=== PATIENT | female | born 1990 | race African-American/Black ===

== ENCOUNTER 2021-03-21 15:43 | Emergency (ER) | payer OTHER, SELFPAY ==
--- NOTE | ~2021-03-21 | XR_ITS ---
EXAMINATION: XR ankle RT min 3V DATE: 03/21/2021 16:02 INDICATION: Lateral right ankle pain post fall TECHNIQUE: Anteroposterior, oblique, mortise, and lateral views of the right ankle were obtained. COMPARISON: None. FINDINGS: Alignment is normal. No fracture. Joint spaces are well maintained. No ankle joint effusion. The so ft tissues are unremarkable. IMPRESSION: 1. Negative right ankle radiographs. Reviewed, dictated and finalized at location A.
[2021-03-21 15:50] VITALS: BP 111/78; PULSE 105; RESP 16; TEMP 37.1; O2SAT 99
--- NOTE | 2021-03-21 16:12 | ED.GENADULT ---
HPI - General Adult General Chief complaint: Extremity Injury, Lower Stated complaint: right ankle pain Source: patient Mode of arrival: ambulatory Limitations: no limitations History of Present Illness HPI narrative: Patient is a 30-year-old -Luxembourger female who presents to the [facility] via POV for evaluation of a right ankle injury that occurred today. Patient reports she was at home when she accidentally fell down steps when she missed stepped wearing her [employer] slides. Additionally, she reports pain and swelling. Pain is 7 out of 10 on a pain scale. Symptoms improved with elevation and worsened with weightbearing Related Data Allergies Allergy/AdvReac Type Severity Reaction Status Date / Time Penicillins Allergy Intermediate HIVES Verified 03/21/21 16:08 Review of Systems Review of Systems: Pertinent negatives: fever, chills, sweats, change in appetite, poor p.o. intake, malaise, calf tenderness, skin color changes, rash, warmth, numbness, tingling, loss of sensation, deformity, decreased range of motion, weakness, difficulty with ambulation/coordination, nausea, vomiting, lymphadenopathy, shortness of breath, chest pain, heart palpitations, and heart murmur. PMFSH Comments I have reviewed and agree with the patient's past medical, surgical, social, and family hx as documented by the RN. There is no relevant family history pertinent to the presenting complaint. Exam Narrative: GENERAL: Well-appearing, well-nourished, and in no acute distress. HEAD: Normocephalic, atraumatic. NECK: Supple. No Lymphadenopathy or nuchal rigidity appreciated. CHEST: Bilateral lung whelan are clear to auscultation. No respiratory distress. No evidence of cough or pleuritic cp upon examination. HEART: Tachycardia with a rate of 105. Regular rhythm. No murmur, gallop, or rub heard. EXTREMITIES: Mild swelling and moderate point tenderness palpated over lateral malleolus of right ankle. Moderate pain is elicited with all active/passive ROM of right ankle no evidence of decreased ROM, cyanosis, hematoma, laceration, abrasion, deformity, rash, or puncture. No evidence of dislocation, ligament laxity, effusion, or pain at rest. Pulses palpable at 2+, strength 5/5, and cap refill < 3 seconds in affected extremity. DTRs normal. Gait normal. SKIN: Warm, dry, no rash. NEURO: No focal deficits. Alert and oriented x3. Course Vital Signs Vital signs: Vital Signs Temperature 98.7 F 03/21/21 15:50 Pulse Rate 105 H 03/21/21 15:50 Respiratory Rate 16 03/21/21 15:50 Blood Pressure 111/78 03/21/21 15:50 Pulse Oximetry 99 03/21/21 15:50 Temperature 98.7 F 03/21/21 15:50 Pulse Rate 105 H 03/21/21 15:50 Respiratory Rate 16 03/21/21 15:50 Blood Pressure 111/78 03/21/21 15:50 Pulse Oximetry 99 03/21/21 15:50 Reviewed Procedures Orthopedic Splinting/Casting Injury #1: Splinting/Casting Date: 03/21/21 Splinting/Casting Time: 16:24 Side: right Upper Extremity Immobilizer: Hemant wrap Lower Extremity Injury Location: ankle Pre-Procedure Neuro Vascular Exam: normal Post-Procedure Neuro Vascular Exam: normal Medical Decision Making Differential Diagnosis Differential Diagnosis: Sprain, strain, cellulitis, open fracture, closed fracture, gout Medical Records Medical records reviewed: Yes I reviewed the external patient's medical records. Vital Signs Vital Signs: Vital Signs Temperature 98.7 F 03/21/21 15:50 Pulse Rate 105 H 03/21/21 15:50 Respiratory Rate 16 03/21/21 15:50 Blood Pressure 111/78 03/21/21 15:50 Pulse Oximetry 99 03/21/21 15:50 Temperature 98.7 F 03/21/21 15:50 Pulse Rate 105 H 03/21/21 15:50 Respiratory Rate 16 03/21/21 15:50 Blood Pressure 111/78 03/21/21 15:50 Pulse Oximetry 99 03/21/21 15:50 Reviewed Imaging Data Attestation: I personally reviewed and interpreted this imaging study as follows: My impression: Negative
== END 2021-03-21 16:30 | disposition home or self-care (01) ==
PROVIDERS: Emergency Provider Nurse Practitioner Family
DX: S93.401A Sprain of unspecified ligament of right ankle, initial encounter (principal); S96.911A Strain of unspecified muscle and tendon at ankle and foot level, right foot, initial encounter; W10.9XXA Fall (on) (from) unspecified stairs and steps, initial encounter
CPT/HCPCS: 73610; 99213; G0463

== ENCOUNTER 2022-03-08 10:33 | Outpatient (CLI) | payer SELFPAY ==
--- NOTE | ~2022-03-08 | US_ITS ---
EXAMINATION: US transvaginal DATE: 03/08/2022 13:19 INDICATION: Fragility testes Comparison:Ultrasound dated 11/04/2017 TECHNIQUE: Multiple endovaginal sonographic images of the pelvis performed. FINDINGS: The uterus measures 8.2 x 4.4 x 5.4 cm. The endometrial complex measures 2 mm. The right ovary measures 2.7 x 1.8 x 1.7 cm and the left ovary measures 2.5 x 1.6 x 1.4 cm. There ar e small follicles in each ovary. Normal doppler signal in both ovaries. There is no free fluid in the pelvis. There are no abnormal masses seen on either side. IMPRESSION: 1. Unremarkable pelvic ultrasound. Reviewed, dictated and finalized at location B.
[2022-03-13 07:08] LABS: Progesterone 0.5 ng/mL (***)
[2022-03-15 20:26] LABS: Estradiol, Ultrasensitive 23 pg/mL
== END 2022-03-08 10:34 | disposition home or self-care (01) ==
DX: Z31.41 Encounter for fertility testing (principal)
CPT/HCPCS: 36415; 76830; 82670; 84144

== ENCOUNTER 2022-03-17 14:22 | Outpatient (CLI) | payer SELFPAY ==
--- NOTE | ~2022-03-17 | US_ITS ---
EXAMINATION: US pelvic complete w TV DATE: 03/17/2022 15:18 INDICATION: Encounter for infertility. Comparison:Ultrasound dated 03/08/2022 TECHNIQUE: Multiple transabdominal and endovaginal sonographic images of the pelvis performed. FINDINGS: The uterus measures 8.3 x 4.5 x 5.7 cm. The endometrial complex measures 2 mm. The right ovary measures 3.1 x 2.5 x 2.5 cm and the left ovary measures 3.1 x 2 x 2.5 cm. There are small follicles in each ovary. There is a 1.8 cm right ovarian cyst. Normal doppler signal in both ov kam. There is no free fluid in the pelvis. There are no abnormal masses seen on either side. IMPRESSION: 1. Right ovarian cyst measuring 1.8 cm. Otherwise, unremarkable pelvic ultrasound. Reviewed, dictated and finalized at location A. IMPRESSION: 1. Right ovarian cyst measuring 1.8 cm. Otherwise, unremarkable pelvic ultrasou nd.
== END 2022-03-17 14:23 | disposition home or self-care (01) ==
DX: N97.9 Female infertility, unspecified (principal); N83.201 Unspecified ovarian cyst, right side
CPT/HCPCS: 76830; 76856

== ENCOUNTER 2022-03-28 15:55 | Outpatient (CLI) | payer SELFPAY ==
--- NOTE | ~2022-03-28 | US_ITS ---
EXAMINATION: US pelvic complete w TV DATE: 03/28/2022 17:09 INDICATION: Fragility testing Comparison:Ultrasound dated 03/17/2022 TECHNIQUE: Multiple transabdominal and endovaginal sonographic images of the pelvis performed. FINDINGS: The uterus measures 8.3 x 4.5 x 5.6 cm. The endometrial complex measures 8 mm. There are ec hogenic foci in the lower uterine segment, consistent with calcifications, nonspecific. The right ovary measures 2.8 x 2 x 2.5 cm and the left ovary measures 3 x 1.6 x 2.3 cm. There are sm all follicles in each ovary. Normal doppler signal in both ovaries. There is no free fluid in the pelvis. There are no abnormal masses seen on either side. IMPRESSION: 1. Unremarkable pelvic ultrasound. Reviewed, dictated and finalized at location A.
== END 2022-03-28 15:56 | disposition home or self-care (01) ==
DX: Z31.41 Encounter for fertility testing (principal)
CPT/HCPCS: 76830; 76856

== ENCOUNTER 2022-04-27 14:45 | Emergency (ER) | payer OTHER, SELFPAY ==
--- NOTE | ~2022-04-27 | US_ITS ---
EXAMINATION: US OB <=14 wk fetus w TV DATE: 04/27/2022 17:16 INDICATION: Vaginal bleeding during first trimester TECHNIQUE: Real-time pelvic transabdominal and transvaginal ultrasound was performed. COMPARISON: 03/28/2022 FINDINGS: The uterus measures 9.3 x 5.2 x 5.7 cm. There is an intrauterine gestational sac. A yolk s ac is identified. heart motion is identified but is difficult to measure due to positioni ng. The crown rump length measures 3 mm, which correlates with an estimated gestational age of 6 weeks and 0 day(s) (+/-) 4 day(s). The left ovary is not visualized however no left adnexal abnormality is seen. The right ovary measure s 2.6 x 1.8 x 1.4 cm. There is normal vascular flow in the right ovary. There is no free fluid in the pelvis. IMPRESSION: 1. Live intrauterine with an estimated gestational age of 6 weeks and 0 day(s) (+/-) 4 day( s) and an estimated delivery date of 12/21/2022. Reviewed, dictated and finalized at location F. ED TECH IMPRESSION: 1. Live intrauterine with an estimated gestational age of 6 weeks and 0 day(s) (+/-) 4 day(s) and an estimated delivery date of 12/21/2022.
[2022-04-27 14:46] VITALS: BP 142/78; PULSE 90; RESP 18; TEMP 36.7; O2SAT 100
[2022-04-27 15:05] LABS: Basophils Percent Auto 0.4 % (0.2-1.2); Eosinophils Absolute Auto 0.1 K/mm3 (0-0.3); Eosinophils Percent Auto 1.2 % (0-4.4); Hematocrit 38.2 % (37.0-47.0); Immature Granulocyte Absolute 0.02 K/mm3 (0.00-0.031); Immature Granulocyte Percent A 0.2 % (0-0.5); Lymphocytes Absolute Auto 3.86 K/mm3 (0.9-3.2); Lymphocytes Percent Auto 39.2 % (18.3-44.2); Mean Corpuscular Hemoglobin 31.5 pg (26-34); Mean Corpuscular Volume 92.5 fl (80-100); Mean Platelet Volume 9.3 fl (7.4-10.4); Monocytes Absolute Auto 0.7 K/mm3 (0.1-0.6); Neutrophils Absolute Auto 5.1 K/mm3 (1.3-6.7); Platelet Count Result 302 k/mm3 (150-375); Red Blood Count 4.13 M/mm3 (4.2-5.4); Red Cell Distribution Width 12.8 % (11.5-14.5); White Blood Count 9.8 K/mm3 (4.5-10.0)
--- NOTE | 2022-04-27 17:56 | ED.PREGNANCY ---
HPI - General Chief complaint: Vaginal Bleeding Stated complaint: 6 weeks /bleeding Time Seen by Provider: 04/27/22 16:09 Source: patient Mode of arrival: ambulatory Limitations: no limitations History of Present Illness HPI Narrative: Patient is a 31-year-old female who presents the ED with report of vaginal bleeding. Patient reports she is currently around 6 weeks gestation with a surrogate . She is (her own children) A1. She underwent IVF egg transfer on 04/06 through a clinic in [place]. She was monitored by the clinic in [place] with weekly beta hCGs. She has not had a ultrasound yet this . This morning around 11 AM, she reported having some vaginal spotting. She did pass 1 medium sized blood clot. She denies any significant abdominal pain, nausea, vomiting, fevers, rectal bleeding, diarrhea, constipation. Related Data Allergies Allergy/AdvReac Type Severity Reaction Status Date / Time Penicillins Allergy Intermediate HIVES Verified 03/21/21 16:08 Review of Systems Review of Systems: CONSTITUTIONAL: Denies fever, chills, or sweats. CARDIOVASCULAR: Denies chest pain. RESPIRATORY: Denies dyspnea. GASTROINTESTINAL: Denies abdominal pain, nausea, vomiting, constipation, rectal bleeding, or diarrhea. GENITOURINARY: Reports vaginal bleeding. Denies dysuria or hematuria. All systems reviewed & are unremarkable except as noted in HPI and below PMFSH Past Medical History Medical History (Updated 04/27/22 @ 19:12 by Delfina Zuniga PA-C) No pertinent past medical history Surgical History Surgical History (Updated 04/27/22 @ 19:12 by Delfina Zuniga PA-C) No pertinent past surgical history Social History Social History (Updated 04/27/22 @ 19:12 by Delfina Zuniga PA-C) Smoking status: Never smoker Exam Narrative: GENERAL: Well appearing, obese, non-toxic, in no acute distress. HEAD: Normocephalic, atraumatic. NECK: Supple. No adenopathy, no masses. RESPIRATORY: Airway patent, respirations nonlabored. Clear to auscultation bilaterally, no rales, rhonchi, wheezing. CARDIOVASCULAR: Regular rate and rhythm without murmurs, rubs, or gallops. Radial pulses 2+ and equal bilaterally. ABDOMINAL: Soft, no significant tenderness palpation, nondistended, no hepatosplenomegaly. Normoactive BS. PELVIC: Normal external genitalia. Normal appearance to cervix, appears closed. Mild amount of dark red bleeding present in vaginal vault, no signs of hemorrhage, easily cleared with long q-tips. No pooling of blood. No discharge. MUSCULOSKELETAL: Moves all extremities. Strength/ROM intact without gross deformities. SKIN: Warm, dry, normal color. No rashes. NEURO: A&O X3. Speech clear. Cranial nerves II-XII grossly intact. Steady gait. No ataxic movements. PSYCHIATRIC: Appropriate mood and affect. Normal interaction. Course Vital Signs Vital signs: Vital Signs Temperature 98.0 F 04/27/22 14:46 Pulse Rate 90 04/27/22 14:46 Respiratory Rate 18 04/27/22 14:46 Blood Pressure 142/78 H 04/27/22 14:46 Pulse Oximetry 100 04/27/22 14:46 Oxygen Delivery Room Air 04/27/22 14:46 Temperature 98.0 F 04/27/22 14:46 Pulse Rate 90 04/27/22 14:46 Respiratory Rate 18 04/27/22 14:46 Blood Pressure 142/78 H 04/27/22 14:46 Pulse Oximetry 100 04/27/22 14:46 Oxygen Delivery Room Air 04/27/22 14:46 MDM - OB/Uterine Contractions MDM Narrative Medical decision making narrative: Patient presented to ED with report of vaginal bleeding, approximately 6 weeks gestation for surrogate , implanted via IVF on 04/06. Vital stable upon arrival. Labs obtained and unremarkable. No anemia. UA without signs of infection. Patient O+, RhoGAM not required. Beta-hCG today 8749. Patient reports she has been obtaining beta hCGs every week at an outpatient lab. She states she had a beta-hCG drawn this morning which was 9000. Pelvic ultrasound obtained
[2022-04-27 18:28] LABS: Add Urine Microscopic? YES; Appearance Urine Cloudy (Clear); Bilirubin Urine Negative (Negative); Blood Urine 3+ (Negative); Color Urine Red (Yellow); Glucose Urine UA Negative (Negative); Ketones Urine Negative (Negative); Leukocyte Esterase Ur Negative LEU/UL (Negative); Nitrate Urine Negative (Negative); Protein Urine 1+ mg/dL (Negative); Specific Grav Ur 1.025 (1.001-1.035); Urobilinogen Urine 0.2 mg/dL (<2.0)
[2022-04-27 18:32] LABS: Mucus Urine Rare /lpf; RBC Urine >75 /hpf (0-2); WBC Urine 0-3 /hpf
== END 2022-04-27 19:58 | disposition home or self-care (01) ==
PROVIDERS: Physician Assistant; Emergency Provider Emergency Medicine
DX: O20.0 Threatened abortion (principal); Z3A.01 Less than 8 weeks gestation of pregnancy
CPT/HCPCS: 36415; 76801; 76817; 81001; 84702; 85025; 85461; 86850; 86900; 86901; 99284

== ENCOUNTER 2022-05-03 14:39 | Outpatient (CLI) | payer SELFPAY ==
--- NOTE | ~2022-05-03 | US_ITS ---
EXAMINATION: US OB <=14 wk fetus w TV DATE: 05/03/2022 16:06 INDICATION: Gestational dating TECHNIQUE: Real-time transabdominal and transvaginal obstetric ultrasound. FINDINGS: Comparison ultrasound dated 04/27/2022 The uterus measures 10.3 x 6.9 x 4.6 cm. There is an intrauterine gestational sac, with pole id entified. The crown rump length measures 0.79 cm. heart rate is 135 BPM. There is a subchorion ic hemorrhage measuring 2.2 x 1.9 x 0.4 cm. The ovaries are within normal limits. No free fluid in th e pelvis. IMPRESSION: 1. SL IUP with an EGA of 6 weeks, 6 days (EDC by initial ultrasound of 12/21/2022). 2: Small subchorionic hemorrhage. Reviewed, dictated and finalized at location B. NCIAL INVESTMENT MANAGER IMPRESSION: 1. SL IUP with an EGA of 6 weeks, 6 days (EDC by initial ultrasound of 3). 2: Small subchorionic hemorrhage.
== END 2022-05-03 14:40 | disposition home or self-care (01) ==
LOC: ANHIMG 14:54
DX: O09.891 Supervision of other high risk pregnancies, first trimester (principal); Z3A.01 Less than 8 weeks gestation of pregnancy
CPT/HCPCS: 76801; 76817

== ENCOUNTER 2022-05-30 11:57 | Observation (INO) | payer SELFPAY ==
[2022-05-30 12:30] VITALS: TEMP 37.1
[2022-05-30] MEDS: ONDANSETRON INJ 4 MG/2 ML VIAL IV PUSH (12:39)
[2022-05-30] MEDS: DEXTROSE 5%/LACTATED RINGERS 1,000 ML 999 ML IV CONT ×2 (12:39→13:42)
[2022-05-30 12:40] LABS: Bilirubin Urine 1+ (Negative); Blood Urine 3+ (Negative); Glucose Urine UA Negative (Negative); Ketones Urine Trace mg/dL (Negative); Leukocyte Esterase Ur Trace LEU/UL (Negative); Nitrate Urine Negative (Negative); Protein Urine 2+ mg/dL (Negative); Specific Grav Ur >= 1.030 (1.001-1.035)
[2022-05-30 12:44] VITALS: BMI 33.2
[2022-05-30 12:44] LABS: Add Urine Microscopic? YES; Appearance Urine Cloudy (Clear); Color Urine Dark Orange (Yellow)
--- NOTE | 2022-05-30 12:44 | OBADM ---
This patient, Nury Méndez, admitted to the OB room OB Post 116 for observation. Patient/family oriented to hospital policies and general routines including ID bracelet, bed and alarms, visiting hours, pain management, procedures, bathroom and other care routines, personal items, smoking policy, room service/diet, and visiting hours. Patient/Family are encouraged to report perceived risks to care and to ask questions if they do not understand what they are told or what they should do.
[2022-05-30 12:48] LABS: Alanine Aminotransferase 31 U/L (6-35); Albumin Level 4.2 g/dL (3.5-5.1); Alkaline Phosphatase 56 U/L (38-126); Anion Gap 11 mmol/L (8-16); Aspartate Amino Transferase 31 U/L (14-36); Bilirubin,Total 0.7 mg/dL (0.2-1.3); Blood Urea Nitrogen 7 mg/dL (7-17); Calcium 9.1 mg/dL (8.4-10.2); Carbon Dioxide 20 mmol/L (22-30); Chloride 105 mmol/L (98-107); Estimated CRCL calculation 137 ml/min; Estimated Glomerular Filt Rate > 60; Glucose 125 mg/dL (65-110); Potassium 3.5 mmol/L (3.4-5.0); Sodium 136 mmol/L (137-145)
[2022-05-30 12:49] LABS: Bacteria Urine 1+ /hpf; Mucus Urine Heavy /lpf; RBC Urine 21-50 /hpf (0-2); Squamous Epithelial Cell Urine Many /hpf (Few); WBC Urine 31-50 /hpf
--- NOTE | 2022-06-18 20:19 | PM.OBTRLD ---
OB - Triage/Final Diagnosis Visit Information Comments/Additional reasons for admission: I have assessed the risk for this patient, Nury Méndez, and determined that she would benefit from observation care. Evaluation Laboratory results: Laboratory Tests 05/30/22 05/30/22 12:27 12:27 Sodium 136 L Potassium 3.5 Chloride 105 Carbon Dioxide 20 L Anion Gap 11 BUN 7 Creatinine 0.70 Estim Creat Clear Calc 137 Estimated GFR > 60 Glucose 125 H Calcium 9.1 Total Bilirubin 0.7 AST 31 ALT 31 Alkaline Phosphatase 56 Total Protein 8.0 Albumin 4.2 Urine Color Dark orange H Urine Appearance Cloudy H Urine pH 5.0 Ur Specific [place] >= 1.030 Urine Protein 2+ H Urine Glucose (UA) Negative Urine Ketones Trace Ur Blood (Man) 3+ H Urine Nitrate Negative Urine Bilirubin 1+ H Urine Urobilinogen 1.0 Leukocyte Esterase Rfl Trace H Urine RBC 21-50 H Urine WBC 31-50 H Ur Squamous Epith Cells Many H Urine Bacteria 1+ H Urine Mucus Heavy H Final Diagnosis (1) Hyperemesis gravidarum: Code(s): O21.0 - Mild hyperemesis gravidarum Status: Acute
== END 2022-05-30 15:00 | disposition home or self-care (01) ==
PROVIDERS: Admitting Provider Obstetrics & Gynecology; Visit Provider Obstetrics & Gynecology
DX: O21.0 Mild hyperemesis gravidarum (principal); Z3A.10 10 weeks gestation of pregnancy
CPT/HCPCS: 36415; 80053; 81001; 87086; 87088; 96361; 96374; G0378; G0379; J2405; J7121

== ENCOUNTER 2022-05-30 18:03 | Outpatient (CLI) | payer SELFPAY ==
--- NOTE | ~2022-05-30 | US_ITS ---
US OB <= 14 weeks fetus DATE: 05/30/2022 18:45 INDICATION: screening examination TECHNIQUE: Real-time and color flow imaging and Doppler analysis COMPARISON: None FINDINGS: The uterus measures 13.7 cm height, 7 cm AP dimension. There is normal appearing intrauteri ne gestational sac. pole is identified with heart rate of 168 bpm. [place]-rump length measures 3.63 cm, consistent with estimated gestational age of 10 weeks 4 days +/- 1 week, with SHANNAN of 12/22/2022. Small subchorionic fluid collection may be a small subchorionic hemato ma. IMPRESSION: Estimated gestational age of 10 weeks 4 days +/- 1 week, with SHANNAN of 12/22/2022 Small subchorionic fluid collection, which may be a small subchorionic hematoma Reviewed, dictated and finalized at Location A. Reviewed, dictated and finalized at location A. UCT DEVELOPMENT ECOLOGIST IMPRESSION: Estimated gestational age of 10 weeks 4 days +/- 1 week, with SHANNAN o f 12/22/2022 Small subchorionic fluid collection, which may be a small subchorionic hematoma
== END 2022-05-30 18:04 | disposition home or self-care (01) ==
DX: Z36.9 Encounter for antenatal screening, unspecified (principal); Z3A.10 10 weeks gestation of pregnancy
CPT/HCPCS: 76801

== ENCOUNTER 2022-06-16 12:54 | Observation (INO) | payer OTHER, SELFPAY ==
--- NOTE | ~2022-06-16 | US_ITS ---
US right upper quadrant INDICATION: Gallstones. PROCEDURE: Realtime right upper abdominal ultrasound. COMPARISON: No prior studies for comparison. FINDINGS: The pancreas is normal without focal mass or pancreatic ductal dilation. There is a small echogenic mass measuring 9 mm in the anterior aspect of the liver. There is normal directional flow in the portal vein. Gallbladder contains sludge. No gallstones, gallbladder wall thickening or pericholecystic fluid. Com mon bile duct measures 4 mm. No sonographic Valero's sign. IMPRESSION: 1: Gallbladder sludge. 2: Small 9 mm echogenic mass anterior aspect of the liver, most likely benign hemangioma in the abse nce of known malignancy. Reviewed, dictated and finalized at location A. AGE CENTER SUPERVISOR IMPRESSION: 1: Gallbladder sludge. 2: Small 9 mm echogenic mass anterior aspect of the liver, most likely benign hemangioma in the absence of known malignancy.
[2022-06-16 13:40] LABS: Basophils Percent Auto 0.4 % (0.2-1.2); Eosinophils Percent Auto 0.3 % (0-4.4); Hematocrit 41.5 % (37.0-47.0); Hemoglobin 13.9 g/dL (12.0-15.0); Immature Granulocyte Absolute 0.02 K/mm3 (0.00-0.031); Immature Granulocyte Percent A 0.3 % (0-0.5); Lymphocytes Absolute Auto 1.95 K/mm3 (0.9-3.2); Lymphocytes Percent Auto 26.5 % (18.3-44.2); Mean Corpuscular HGB Conc 33.5 g/dl (32-36); Mean Corpuscular Hemoglobin 31.7 pg (26-34); Mean Corpuscular Volume 94.5 fl (80-100); Mean Platelet Volume 10.5 fl (7.4-10.4); Monocytes Absolute Auto 0.6 K/mm3 (0.1-0.6); Monocytes Percent Auto 7.8 % (2.6-8.5); Neutrophils Absolute Auto 4.8 K/mm3 (1.3-6.7); Neutrophils Percent Auto 64.7 % (45.5-73.1); Platelet Count Result 261 k/mm3 (150-375); Red Blood Count 4.39 M/mm3 (4.2-5.4); White Blood Count 7.4 K/mm3 (4.5-10.0)
[2022-06-16] MEDS: ONDANSETRON INJ 4 MG/2 ML VIAL IV PUSH (13:43)
[2022-06-16] MEDS: DEXTROSE 5%/LACTATED RINGERS 1,000 ML 999 ML IV CONT ×2 (13:44→14:49)
[2022-06-16 13:51] LABS: Alanine Aminotransferase 48 U/L (6-35); Albumin Level 4.4 g/dL (3.5-5.1); Alkaline Phosphatase 63 U/L (38-126); Anion Gap 13 mmol/L (8-16); Aspartate Amino Transferase 39 U/L (14-36); Blood Urea Nitrogen 5 mg/dL (7-17); Calcium 9.2 mg/dL (8.4-10.2); Carbon Dioxide 20 mmol/L (22-30); Chloride 99 mmol/L (98-107); Estimated Glomerular Filt Rate > 60; Glucose 100 mg/dL (65-110); Potassium 3.1 mmol/L (3.4-5.0); Sodium 132 mmol/L (137-145)
[2022-06-16 14:31] LABS: HIV 1/2 Ab P24 Ag Result Negative (Negative)
[2022-06-16 15:07] VITALS: BMI 31.4
[2022-06-16 15:33] LABS: Add Urine Microscopic? YES; Appearance Urine Cloudy (Clear); Bilirubin Urine 1+ (Negative); Blood Urine 2+ (Negative); Color Urine Yellow (Yellow); Glucose Urine UA 1+ mg/dL (Negative); Ketones Urine 3+ mg/dL (Negative); Leukocyte Esterase Ur Negative LEU/UL (Negative); Nitrate Urine Negative (Negative); Protein Urine Trace mg/dL (Negative); Specific Grav Ur >= 1.030 (1.001-1.035)
[2022-06-16 15:49] LABS: Bacteria Urine Trace /hpf; Mucus Urine Few /lpf; Squamous Epithelial Cell Urine Many /hpf (Few)
--- NOTE | 2022-06-16 16:13 | PC.NURSE ---
1540--Pt. vomited 200cc liquid emesis yellow/brown in color.
--- NOTE | 2022-06-16 16:14 | PC.NURSE ---
1546--Report to Dr. Snider re: lab results and pt. vomiting. Orders received for meds, IVF's with KCL and an u/s.
--- NOTE | 2022-06-16 16:15 | PC.NURSE ---
1254--Pt. received for IV hydration and labwork.
--- NOTE | 2022-06-16 16:16 | PC.NURSE ---
1340--IV started with 20g in L. hand, labs drawn and sent with IV start.
[2022-06-16 16:29] LABS: Rapid Plasma Reagin Non-Reactive (NonReactive)
[2022-06-16] MEDS: ceFAZolin 2 GM/D5W 50 ML 2 GM/50 ML BAG IVPB (16:41)
[2022-06-16] MEDS: METOCLOPRAMIDE HCL INJ 10 MG/2 ML VIAL IV PUSH (16:42)
[2022-06-16] MEDS: FAMOTIDINE 20 MG TABLET PO (16:43)
[2022-06-16] MEDS: POTASSIUM CHLORIDE INJ 40 MEQ in DEXTROSE 5%/LACTATED RINGERS 1,000 ML 150 MEQ IV CONT (17:17)
--- NOTE | 2022-06-16 17:24 | PC.NURSE ---
172--Report to Dr. Snider re: u/s report, and pt. states no nausea or vomiting since pepcid and reglan. Orders to continue IVF's with KCL, and allow pt. to try to eat when she feels like it. If she is able to eat and keep food down and wants to go home, call Dr. Snider back.
--- NOTE | 2022-06-16 18:20 | PC.NURSE ---
182--Pt. updated re: POC as discussed with Dr. Snider, states she just wants to rest at this time. Report to Brodie Casanova RN to assume care of pt.
--- NOTE | 2022-06-16 19:15 | PC.NURSE ---
Dr. Snider calls unit for update. Informed that patient was updated on POC and is going to let the nurse know when she is ready to eat. Dr Snider states she is sending prescriptions to the pharmacy for keflex, potassium, and reglan and that when the patient is ready to discharge home she is able to do so.
--- NOTE | 2022-06-16 19:22 | PC.NURSE ---
Patient calls out to nurses station at this time stating that she is ready to try eating. Jello, apple sauce, saltine and tristian crackers with peanut butter all brought to patient at this time for her to choose what she would like to eat. Pt informed that Dr. Snider called unit for an update and was told patient was resting and that she was sending orders for Keflex, potassium, and reglan to the pharmacy for when the patient chooses to leave.
--- NOTE | 2022-06-16 19:53 | PC.NURSE ---
Dr Snider calls unit and orders for patient to stay over night and after her D5LR KCl is administered to saline lock if she is tolerating liquids and keeping her food down. Orders to repeat CMP in the morning. POC discussed with patient and pt agrees with POC
--- NOTE | 2022-06-16 20:00 | PC.NURSE ---
Patient states she has been able to keep her food down. Ate jello, apple sauce, and tristian crackers with peanut butter.
--- NOTE | 2022-06-16 21:05 | PC.NURSE ---
Patient IV infiltrated, new IV start after 2 attempts in right AC and IV fluids continued.
--- NOTE | 2022-06-17 00:22 | PC.NURSE ---
IV fluids DC at this time, patient still able to keep food down and states she is going to sleep and will let the nurse know if she needs anything. IV saline locked at this time.
[2022-06-17 05:50] LABS: Alanine Aminotransferase 49 U/L (6-35); Albumin Level 3.2 g/dL (3.5-5.1); Alkaline Phosphatase 48 U/L (38-126); Anion Gap 7 mmol/L (8-16); Aspartate Amino Transferase 38 U/L (14-36); Bilirubin,Total 0.7 mg/dL (0.2-1.3); Blood Urea Nitrogen 2 mg/dL (7-17); Calcium 8.6 mg/dL (8.4-10.2); Carbon Dioxide 22 mmol/L (22-30); Chloride 107 mmol/L (98-107); Estimated CRCL calculation 132 ml/min; Estimated Glomerular Filt Rate > 60; Glucose 101 mg/dL (65-110); Potassium 3.3 mmol/L (3.4-5.0); Sodium 136 mmol/L (137-145)
[2022-06-17] MEDS: FAMOTIDINE 20 MG TABLET PO (09:20)
[2022-06-17] MEDS: POTASSIUM CHLORIDE 20 MEQ TABLET PO (10:06)
--- NOTE | 2022-07-11 09:13 | PM.OBTRLD ---
OB - Triage/Final Diagnosis Visit Information Comments/Additional reasons for admission: I have assessed the risk for this patient, Nury Méndez, and determined that she would benefit from observation care. Evaluation Laboratory results: Laboratory Tests 06/16/22 06/16/22 06/16/22 13:32 13:32 13:32 WBC RBC Hgb Hct MCV MCH MCHC RDW Plt Count MPV Immature Gran % (Auto) Neut % (Auto) Lymph % (Auto) [place] % (Auto) Eos % (Auto) Baso % (Auto) Lymph # (Auto) [place] # (Auto) Eos # (Auto) Baso # (Auto) Abs Immat Gran (auto) Absolute Neuts (auto) Absolute Nucleated RBC Nucleated RBC % Sodium Potassium Chloride Carbon Dioxide Anion Gap BUN Creatinine Estim Creat Clear Calc Estimated GFR Glucose Calcium Total Bilirubin AST ALT Alkaline Phosphatase Total Protein Albumin TSH 2.180 Urine Color Yellow Urine Appearance Cloudy H Urine pH 6.0 Ur Specific [place] >= 1.030 Urine Protein Trace Urine Glucose (UA) 1+ H Urine Ketones 3+ H Ur Blood (Man) 2+ H Urine Nitrate Negative Urine Bilirubin 1+ H Urine Urobilinogen 1.0 Leukocyte Esterase Rfl Negative Urine RBC 11-20 H Urine WBC 10-15 H Ur Squamous Epith Cells Many H Urine Bacteria Trace Urine Mucus Few H RPR Non-reactive HIV 1&2 Ab/P24 Ag 4thGn 06/16/22 06/16/22 06/16/22 13:32 13:32 13:32 WBC 7.4 RBC 4.39 Hgb 13.9 Hct 41.5 MCV 94.5 MCH 31.7 MCHC 33.5 RDW 13.0 Plt Count 261 MPV 10.5 H Immature Gran % (Auto) 0.3 Neut % (Auto) 64.7 Lymph % (Auto) 26.5 [place] % (Auto) 7.8 Eos % (Auto) 0.3 Baso % (Auto) 0.4 Lymph # (Auto) 1.95 [place] # (Auto) 0.6 Eos # (Auto) 0.0 Baso # (Auto) 0.0 Abs Immat Gran (auto) 0.02 Absolute Neuts (auto) 4.8 Absolute Nucleated RBC 0.0 Nucleated RBC % 0.0 Sodium 132 L Potassium 3.1 L Chloride 99 Carbon Dioxide 20 L Anion Gap 13 BUN 5 L Creatinine 0.70 Estim Creat Clear Calc Not Reportable Estimated GFR > 60 Glucose 100 Calcium 9.2 Total Bilirubin 1.0 AST 39 H ALT 48 H Alkaline Phosphatase 63 Total Protein 8.0 Albumin 4.4 TSH Urine Color Urine Appearance Urine pH Ur Specific [place] Urine Protein Urine Glucose (UA) Urine Ketones Ur Blood (Man) Urine Nitrate Urine Bilirubin Urine Urobilinogen Leukocyte Esterase Rfl Urine RBC Urine WBC Ur Squamous Epith Cells Urine Bacteria Urine Mucus RPR HIV 1&2 Ab/P24 Ag 4thGn Negative 06/17/22 05:11 WBC RBC Hgb Hct MCV MCH MCHC RDW Plt Count MPV Immature Gran % (Auto) Neut % (Auto) Lymph % (Auto) [place] % (Auto) Eos % (Auto) Baso % (Auto) Lymph # (Auto) [place] # (Auto) Eos # (Auto) Baso # (Auto) Abs Immat Gran (auto) Absolute Neuts (auto) Absolute Nucleated RBC Nucleated RBC % Sodium 136 L Potassium 3.3 L Chloride 107 Carbon Dioxide 22 Anion Gap 7 L BUN 2 L Creatinine 0.70 Estim Creat Clear Calc 132 Estimated GFR > 60 Glucose 101 Calcium 8.6 Total Bilirubin 0.7 AST 38 H ALT 49 H Alkaline Phosphatase 48 Total Protein 6.0 L Albumin 3.2 L TSH Urine Color Urine Appearance Urine pH Ur Specific [place] Urine Protein Urine Glucose (UA) Urine Ketones Ur Blood (Man) Urine Nitrate Urine Bilirubin Urine Urobilinogen Leukocyte Esterase Rfl Urine RBC Urine WBC Ur Squamous Epith Cells Urine Bacteria Urine Mucus RPR HIV 1&2 Ab/P24 Ag 4thGn Final Diagnosis (1) Severe hyperemesis gravidarum: Code(s): O21.1 - Hyperemesis gravidarum with metabolic disturbance Status: Acute
== END 2022-06-17 12:35 | disposition home or self-care (01) ==
PROVIDERS: Admitting Provider Obstetrics & Gynecology; Visit Provider Obstetrics & Gynecology
DX: O21.1 Hyperemesis gravidarum with metabolic disturbance (principal); O26.611 Liver and biliary tract disorders in pregnancy, first trimester; R16.0 Hepatomegaly, not elsewhere classified; Z11.4 Encounter for screening for human immunodeficiency virus [HIV]; O99.891 Other specified diseases and conditions complicating pregnancy; R82.71 Bacteriuria; Z3A.13 13 weeks gestation of pregnancy
CPT/HCPCS: 36415; 76705; 80053; 81001; 84443; 85025; 86592; 86703; 87086; 87088; 96361; 96365; 96375; A9270; G0378; G0379; G0432; J0690; J2405; J2765; J3480; J7121

== ENCOUNTER 2022-06-24 08:48 | Observation (INO) | payer OTHER, SELFPAY ==
[2022-06-24] VITALS (10 sets, daily range): BP systolic 111–128; BP diastolic 63–73; PULSE 61–74; RESP 14; TEMP 37
[2022-06-24 09:52] LABS: Hematocrit 40.8 % (37.0-47.0); Mean Corpuscular HGB Conc 34.3 g/dl (32-36); Mean Corpuscular Hemoglobin 31.6 pg (26-34); Mean Corpuscular Volume 92.1 fl (80-100); Mean Platelet Volume 11.5 fl (7.4-10.4); Platelet Count Result 239 k/mm3 (150-375); Red Blood Count 4.43 M/mm3 (4.2-5.4); Red Cell Distribution Width 13.2 % (11.5-14.5); White Blood Count 6.7 K/mm3 (4.5-10.0)
[2022-06-24] MEDS: FAMOTIDINE 20 MG/2 ML VIAL IV PUSH (10:01)
[2022-06-24] MEDS: DEXTROSE 5%/LACTATED RINGERS 1,000 ML 999 ML IV CONT (10:02)
[2022-06-24] MEDS: PROMETHAZINE HCL 25 MG SUPP.RECT RECTAL ×2 (10:03→15:13)
[2022-06-24 10:04] LABS: Alanine Aminotransferase 55 U/L (6-35); Albumin Level 4.2 g/dL (3.5-5.1); Alkaline Phosphatase 56 U/L (38-126); Anion Gap 11 mmol/L (8-16); Aspartate Amino Transferase 46 U/L (14-36); Blood Urea Nitrogen 5 mg/dL (7-17); Calcium 9.2 mg/dL (8.4-10.2); Carbon Dioxide 21 mmol/L (22-30); Chloride 103 mmol/L (98-107); Estimated Glomerular Filt Rate > 60; Glucose 116 mg/dL (65-110); Potassium 3.5 mmol/L (3.4-5.0); Sodium 135 mmol/L (137-145)
[2022-06-24] MEDS: methylPREDNISolone SOD SUCC 40 MG VIAL 16 MG IV PUSH ×2 (10:25→18:32)
--- NOTE | 2022-06-24 11:27 | PM.IMHP ---
H&P: HPI History of Present Illness Date/Time: 06/24/22 11:27 Chief Complaint: Hyperemesis Narrative: Patient at surrogate gestation at at 13.5 weeks by IVF conception date. She has a history of hyperemesis. Normal thyroid testing and right upper quad u.s without gallstones. LFTs have been mildly elevated. Following. She has had Zofran and Reglan and prior to Unisom/Diclegis. She has kept some foods down until yesterday. Has not kept anything down until yesterday. Review of Systems Review of Systems: All systems reviewed & are unremarkable except as noted in HPI and below Constitutional: Constitutional: Reports no additional constitutional complaints ENT: Reports system reviewed and no additional complaints, except as documented Cardiovascular: Cardiovascular: Denies chest pain and Denies dyspnea Respiratory: Respiratory: Denies dyspnea Gastrointestinal: Gastrointestinal: Reports no additional gastrointestinal complaints Genitourinary: Genitourinary: Reports amenorrhea Musculoskeletal: Musculoskeletal: Reports no additional musculoskeletal complaints Neurologic: Denies headache(s) Psychiatric: Psychiatric: Reports no additional psychiatric complaints [facility] Past Medical History Medical History No pertinent past medical history Surgical History Surgical History S/P ACL surgery Family History Family History Other Asthma History of cancer Social History Social History Smoking status: Never smoker Alcohol intake: never Substance use: never Substance use type: does not use Meds Home Medications and Allergies Home Medications Medication Instructions Recorded Confirmed Type potassium chloride 10 mEq 10 meq PO BID #8 tabs 06/16/22 06/16/22 Rx tablet,extended release(part/cryst) (Klor-Con M) vit no.133-ferrous 1 tablet PO DAILY 06/16/22 06/16/22 History fumarate 28 mg-folic acid 800 mcg tablet () famotidine 20 mg tablet 20 mg PO DAILY 06/17/22 Rx promethazine 12.5 mg rectal 12.5 mg RECTAL Q6H PRN nausea and 06/24/22 Rx suppository vomiting #12 ea Allergies Allergy/AdvReac Type Severity Reaction Status Date / Time Penicillins Allergy Intermediate HIVES Verified 06/16/22 11:40 Exam Const: General: no acute distress Resp: Effort & Inspection: no respiratory distress Neuro: Cognition (Neuro): normal cognition Psych: Mental Status: mental status grossly normal H&P: Results Labs Labs: Short CBC 06/24/22 Range/Units 09:16 WBC 6.7 (4.5-10.0) K/mm3 Hgb 14.0 (12.0-15.0) g/dL Hct 40.8 (37.0-47.0) % Plt Count 239 (150-375) k/mm3 BMP 06/24/22 09:16 Sodium 135 L Potassium 3.5 Chloride 103 Carbon Dioxide 21 L BUN 5 L Creatinine 0.70 Glucose 116 H Calcium 9.2 Liver Function 06/24/22 Range/Units 09:16 Total Bilirubin 1.0 (0.2-1.3) mg/dL AST 46 H (14-36) U/L ALT 55 H (6-35) U/L Alkaline Phosphatase 56 (38-126) U/L Albumin 4.2 (3.5-5.1) g/dL Assessment and Plan Assessment and plan (1) Hyperemesis affecting , antepartum: Code(s): O21.0 - Mild hyperemesis gravidarum Status: Acute Assessment and Plan: Admit for IV hydration. Labs ordered. Will start steroids. Electrolyte replacement as needed. Acid michlele ordered.
[2022-06-24] MEDS: DEXTROSE 5%/LACTATED RINGERS 1,000 ML 200 ML IV CONT (12:40)
[2022-06-24] MEDS: ONDANSETRON INJ 4 MG/2 ML VIAL IV PUSH ×2 (12:40→18:32)
--- NOTE | 2022-06-24 14:15 | PC.NURSE ---
1137--Dr. Snider called for pt status update. Labs reported, pt sleeping at this time.
--- NOTE | 2022-06-24 14:19 | PC.NURSE ---
1300--Pt reports feeling better. Requests ice chips. Attempted to dopple FHT's but pt requested to stop.
--- NOTE | 2022-06-24 15:23 | PC.NURSE ---
1515--Pt able to ambulate to bathroom. Urine sample sent to lab.
--- NOTE | 2022-06-24 15:26 | PC.NURSE ---
1525--Pt inserts Phenergan after instruction. Requests ice water-reminded to sip slowly.
[2022-06-24 15:37] LABS: Appearance Urine Slightly Cloudy (Clear); Bilirubin Urine 2+ (Negative); Blood Urine 1+ (Negative); Color Urine Yellow (Yellow); Glucose Urine UA Trace mg/dL (Negative); Ketones Urine 4+ mg/dL (Negative); Leukocyte Esterase Ur Trace LEU/UL (NEGATIVE); Nitrate Urine Negative (Negative); Protein Urine 2+ mg/dL (Negative); Specific Grav Ur >= 1.030 (1.001-1.035)
[2022-06-24 15:42] LABS: Amorphous Sediment Urine Moderate; Bacteria Urine Trace /hpf; Mucus Urine Heavy /lpf; Squamous Epithelial Cell Urine Many /hpf (Few)
[2022-06-24 15:46] LABS: Add Urine Microscopic? YES
--- NOTE | 2022-06-24 17:28 | PC.NURSE ---
1624--updated Dr. Snider with pt status and labs. Will call in meds to pharmacy. DC orders given.
--- NOTE | 2022-07-15 11:01 | PM.OBTRLD ---
OB - Triage/Final Diagnosis Visit Information Comments/Additional reasons for admission: I have assessed the risk for this patient, Nury Méndez, and determined that she would benefit from observation care. Evaluation Laboratory results: Laboratory Tests 06/24/22 06/24/22 06/24/22 09:16 09:16 09:17 WBC 6.7 RBC 4.43 Hgb 14.0 Hct 40.8 MCV 92.1 MCH 31.6 MCHC 34.3 RDW 13.2 Plt Count 239 MPV 11.5 H Sodium 135 L Potassium 3.5 Chloride 103 Carbon Dioxide 21 L Anion Gap 11 BUN 5 L Creatinine 0.70 Estim Creat Clear Calc Not Reportable Estimated GFR > 60 Glucose 116 H Calcium 9.2 Total Bilirubin 1.0 AST 46 H ALT 55 H Alkaline Phosphatase 56 Total Protein 7.0 Albumin 4.2 Urine Color Yellow Urine Appearance Slightly cloudy Urine pH 6.0 Ur Specific [place] >= 1.030 Urine Protein 2+ H Urine Glucose (UA) Trace H Urine Ketones 4+ H Ur Blood (Man) 1+ H Urine Nitrate Negative Urine Bilirubin 2+ H Urine Urobilinogen 2.0 H Ur Leukocyte Esterase Trace H Urine RBC 11-20 H Urine WBC 4-6 H Ur Squamous Epith Cells Many H Amorphous Sediment Moderate H Urine Bacteria Trace Urine Mucus Heavy H Final Diagnosis (1) Severe hyperemesis gravidarum: Code(s): O21.1 - Hyperemesis gravidarum with metabolic disturbance Status: Acute
== END 2022-06-24 19:45 | disposition home or self-care (01) ==
PROVIDERS: Admitting Provider Obstetrics & Gynecology; Visit Provider Obstetrics & Gynecology
DX: O21.0 Mild hyperemesis gravidarum (principal); O26.892 Other specified pregnancy related conditions, second trimester; R79.89 Other specified abnormal findings of blood chemistry; Z3A.13 13 weeks gestation of pregnancy; Z79.899 Other long term (current) drug therapy
CPT/HCPCS: 36415; 80053; 81001; 85027; 87086; 87088; 96374; 96375; 96376; A9270; G0378; G0379; J2405; J2920; J7121

== ENCOUNTER 2022-07-04 19:09 | Inpatient (IN) | payer SELFPAY ==
[2022-07-04] MEDS: DEXTROSE 5%/LACTATED RINGERS 1,000 ML 999 ML IV CONT (19:40)
--- NOTE | 2022-07-04 19:55 | PC.NURSE ---
1921- called Dr. Snider- informed of pt admission N/V and hasn't been able to keep food down for the last 6 days. pt states that she took reglan po and suppository at 10am but no dose since. verbal orders received for D5LR bolus, phenergan 25mg suppository, CMP and UA. if ketones in urine continue D5LR at 125 if no ketones LR at 125ml/hr. will plan to monitor pt over night and call if questions/concerns.
[2022-07-04] MEDS: PROMETHAZINE HCL 25 MG SUPP.RECT RECTAL ×2 (19:59→23:59)
[2022-07-04 20:03] VITALS: BP 111/58; PULSE 66
[2022-07-04 20:06] LABS: Alanine Aminotransferase 51 U/L (6-35); Albumin Level 3.8 g/dL (3.5-5.1); Alkaline Phosphatase 92 U/L (38-126); Anion Gap 10 mmol/L (8-16); Aspartate Amino Transferase 36 U/L (14-36); Bilirubin,Total 1.4 mg/dL (0.2-1.3); Blood Urea Nitrogen 6 mg/dL (7-17); Calcium 9.2 mg/dL (8.4-10.2); Carbon Dioxide 21 mmol/L (22-30); Chloride 104 mmol/L (98-107); Estimated Glomerular Filt Rate > 60; Glucose 119 mg/dL (65-110); Potassium 3.6 mmol/L (3.4-5.0); Sodium 135 mmol/L (137-145)
[2022-07-04 20:17] VITALS: BMI 31.4
--- NOTE | 2022-07-04 20:18 | OBADM ---
This patient, Nury Méndez, admitted to the OB room OB Post 117 for observation. Patient/family oriented to hospital policies and general routines including ID bracelet, bed and alarms, visiting hours, pain management, procedures, bathroom and other care routines, personal items, smoking policy, room service/diet, and visiting hours. Patient/Family are encouraged to report perceived risks to care and to ask questions if they do not understand what they are told or what they should do.
--- NOTE | 2022-07-04 21:19 | PC.NURSE ---
2115- Called Dr. Snider- updated on pt status. order received to continue D5LR at 150ml/hr over night. pt has had cough for the last few days with come nasal congestion. will monitor. Dr. Snider to assess pt in am. will continue to monitor and call if questions/concerns.
[2022-07-04 21:21] LABS: Appearance Urine Cloudy (Clear); Bilirubin Urine 2+ (Negative); Blood Urine 1+ (Negative); Color Urine Yellow (Yellow); Glucose Urine UA 2+ mg/dL (Negative); Ketones Urine 4+ mg/dL (Negative); Leukocyte Esterase Ur Trace LEU/UL (NEGATIVE); Nitrate Urine Negative (Negative); Protein Urine 2+ mg/dL (Negative); Specific Grav Ur >= 1.030 (1.001-1.035); pH Urine 5.5 (5.0-9.0)
[2022-07-04 21:22] VITALS: TEMP 36.8
[2022-07-04 21:26] LABS: Bacteria Urine Trace /hpf; Mucus Urine Moderate /lpf; Squamous Epithelial Cell Urine Many /hpf (Few); WBC Urine 21-30 /hpf (0-3)
[2022-07-04] MEDS: DEXTROSE 5%/LACTATED RINGERS 1,000 ML 150 ML IV CONT (21:27)
[2022-07-04 21:31] LABS: Add Urine Microscopic? YES
[2022-07-05] VITALS (8 sets, daily range): BP systolic 99–120; BP diastolic 55–70; PULSE 26–84; RESP 16; TEMP 36.1–37.6; O2SAT 97–98
--- NOTE | 2022-07-05 00:04 | PC.NURSE ---
pt states that she if feeling hungar pains . pt able to eat 1.5 crackers and trying apple sauce. pt informed to do small bites. pt to let nurse know if she is not able to keep food down.
[2022-07-05] MEDS: DEXTROSE 5%/LACTATED RINGERS 1,000 ML 150 ML IV CONT ×3 (04:02→17:56)
--- NOTE | 2022-07-05 04:25 | PC.NURSE ---
0412- called Dr. Snider- pt requesting something else from nausea and vomiting since she feels that the phenergan isn't working. UA reviewed. orders received for zofran 4mg q6, pepcid 20mg q12, methylprednisolone 16mg IV q8, Ancef 2g once, send UA for CX. will continue with IV fluids and monitor pt and call if questions/concerns.
[2022-07-05] MEDS: ONDANSETRON INJ 4 MG/2 ML VIAL IV PUSH ×4 (04:32→22:41)
[2022-07-05] MEDS: ceFAZolin 2 GM/D5W 50 ML 2 GM/50 ML BAG IVPB (04:51)
[2022-07-05] MEDS: FAMOTIDINE 20 MG/2 ML VIAL IV PUSH ×2 (04:52→16:40)
[2022-07-05] MEDS: methylPREDNISolone SOD SUCC 40 MG VIAL 16 MG IV PUSH ×3 (05:24→21:29)
--- NOTE | 2022-07-05 06:12 | PC.NURSE ---
report given to Ruby Cuello RN
--- NOTE | 2022-07-05 12:08 | PC.NURSE ---
FHT doppled at bedside. 145bpm.
--- NOTE | 2022-07-05 12:08 | PC.NURSE ---
Patient had ordered lunch and states she has less nausea than before. She has had PO water and has not vomited at all today.
--- NOTE | 2022-07-05 13:58 | PC.NURSE ---
Updated Dr. Snider on patient's condition. Patient has had no emesis, but had continued nausea. Patient has eaten strawberries, an [place] ice, and apple juice without vomiting. Continuing current plan of care.
--- NOTE | 2022-07-05 14:15 | PC.NURSE ---
GI consult placed per Dr. Snider's verbal order.
--- NOTE | 2022-07-05 14:28 | PM.IMHP ---
H&P: HPI History of Present Illness Date/Time: 07/05/22 14:28 Chief Complaint: nausea and vomiting Narrative: Patient at 16 weeks with recurrent hyperemesis gravidarum. At her last admission she was discharged to home with steroids but she has not resumed them since discharge states due to pharmacy initially not having them and then she did pick them up but did not take them. She has been nauseated and vomiting for 6 days. She was sent home on Zofran and has had reglan also has had phenergan and compazine supp. Has had mild elevated LFT in past and RUQ u.s without gallstones. [facility] Past Medical History Medical History No pertinent past medical history Surgical History Surgical History S/P ACL surgery Family History Family History Other Asthma History of cancer Social History Social History Smoking status: Never smoker Alcohol intake: never Substance use: never Substance use type: does not use Meds Home Medications and Allergies Home Medications Medication Instructions Recorded Confirmed Type potassium chloride 10 mEq 10 meq PO BID #8 tabs 06/16/22 06/16/22 Rx tablet,extended release(part/cryst) (Klor-Con M) vit no.133-ferrous 1 tablet PO DAILY 06/16/22 06/16/22 History fumarate 28 mg-folic acid 800 mcg tablet () famotidine 20 mg tablet 20 mg PO DAILY 06/17/22 Rx famotidine 20 mg tablet (Pepcid AC) 20 mg PO DAILY #30 tabs 06/24/22 Rx methylprednisolone 16 mg tablet See Rx Instructions .Route 06/24/22 Rx (Medrol) .COMPLEX #20 tabs ondansetron 4 mg disintegrating 4 mg PO Q6H PRN nausea and 06/24/22 Rx tablet vomiting #30 tabs promethazine 25 mg rectal 25 mg RECTAL Q6H PRN nausea and 06/24/22 Rx suppository vomiting #12 ea Allergies Allergy/AdvReac Type Severity Reaction Status Date / Time Penicillins Allergy Intermediate HIVES Verified 06/28/22 08:19 Vital Signs Vital Signs - 24 hr 07/04/22 20:03 07/05/22 04:40 07/05/22 06:59 Temperature Pulse Rate 66 69 78 Blood Pressure 111/58 L 120/70 101/58 L Pulse Oximetry 98 Oxygen Delivery 07/05/22 12:05 07/05/22 12:06 07/04/22 21:22 Temperature 98.3 F Pulse Rate 65 Blood Pressure 102/55 L Pulse Oximetry 98 97 Oxygen Delivery 07/05/22 04:43 07/05/22 05:06 07/05/22 07:00 Temperature 97.2 F L 97 F L Pulse Rate Blood Pressure Pulse Oximetry Oxygen Delivery Room Air 07/05/22 12:07 Temperature 97.1 F L Pulse Rate Blood Pressure Pulse Oximetry Oxygen Delivery Exam Const: General: no acute distress Eyes: General: appearance normal, both eyes and all related structures Resp: Effort & Inspection: normal respiratory effort GI: Other: nontender Neuro: General: oriented to person, oriented to place and oriented to time H&P: Results Labs Labs: BMP 07/04/22 19:45 Sodium 135 L Potassium 3.6 Chloride 104 Carbon Dioxide 21 L BUN 6 L Creatinine 0.80 Glucose 119 H Calcium 9.2 Liver Function 07/04/22 Range/Units 19:45 Total Bilirubin 1.4 H (0.2-1.3) mg/dL AST 36 (14-36) U/L ALT 51 H (6-35) U/L Alkaline Phosphatase 92 (38-126) U/L Albumin 3.8 (3.5-5.1) g/dL Urine 07/04/22 Range/Units 20:47 Urine Color Yellow (Yellow) Urine Appearance Cloudy H (Clear) Urine pH 5.5 (5.0-9.0) Ur Specific [place] >= 1.030 (1.001-1.035) Urine Protein 2+ H (Negative) mg/dL Urine Glucose (UA) 2+ H (Negative) mg/dL Assessment and Plan Assessment and plan (1) Asymptomatic bacteriuria: Code(s): R82.71 - Bacteriuria Status: Acute (2) Hyperemesis gravidarum: Code(s): O21.0 - Mild hyperemesis gravidarum Status: Acute Assessment an
--- NOTE | 2022-07-05 16:07 | WPDGICN ---
Assessment and Plan Assessment and plan (1) Hyperemesis gravidarum: Code(s): O21.0 - Mild hyperemesis gravidarum Status: Acute Assessment and Plan: It appears that all reasonable approaches to treat her nausea and hyperemesis have been utilized. I agree with rehydration and intravenous steroids. She is also receiving ondansetron. I have occasionally seen some benefit with Reglan but because of its possible side effects I think that it would be best to avoid it. She admitted that she did not fill a prescription for methylprednisolone to take as an outpatient. (2) Weight loss: Code(s): R63.4 - Abnormal weight loss Status: Acute Assessment and Plan: She has lost about 40 lb so far fortunately however her albumin is still reasonably good at 3.8, hence I do not think this qualifies as malnutrition at this point. (3) Gallbladder sludge: Code(s): K82.8 - Other specified diseases of gallbladder Status: Acute Assessment and Plan: I do not think biliary disease is accounting for symptoms due the fact that she has not had any episodes of biliary colic type pain and her symptoms are not related to eating per se. Plan I agree with the regimen has been initiated. I told her that would like her to not try to force herself to eat tonight. She has pineapple and cottage cheese in front of her now. I think we may want to give her a more concentrated diet with protein shakes etcetera and avoid fiber such as fruits and vegetables for the time being. GI Consult Note Consult date/time: 07/05/22 16:07 HPI: Nury Méndez is a 32 year old female who is 16 weeks into her 3rd . This is actually a surrogate for her. She had morning sickness with her 1st 2 pregnancies, for 11 years ago. This time however since weeks 6, she has had severe and persistent nausea. She states that she has lost 40 lb during this period of time. She has frequent episodes of vomiting or dry heaves. She sometimes gets pain in the abdomen a tight diffuse discomfort but no localizing pain. There has been no significant change in her bowel habits. She has been here on 3 previous occasions for hydration. Last week she was sent home with a prescription for Solu-Medrol Dosepak but she states she did not feel it because she already had ondansetron and promethazine. And after having received IV steroids and fluids she thought she had turned the corner. Liver enzymes are normal except for very slight elevation of ALT. Ultrasound reveals sludge but no stones in the gallbladder and no gallbladder inflammation. Review of Systems Review of Systems: All systems reviewed & are unremarkable except as noted in HPI and below PMFSH Past Medical History Medical History No pertinent past medical history Surgical History Surgical History S/P ACL surgery Family History Family History Other Asthma History of cancer Social History Social History Smoking status: Never smoker Alcohol intake: never Substance use: never Substance use type: does not use Meds Home Medications and Allergies Home Medications Medication Instructions Recorded Confirmed Type potassium chloride 10 mEq 10 meq PO BID #8 tabs 06/16/22 06/16/22 Rx tablet,extended release(part/cryst) (Klor-Con M) vit no.133-ferrous 1 tablet PO DAILY 06/16/22 06/16/22 History fumarate 28 mg-folic acid 800 mcg tablet () famotidine 20 mg tablet 20 mg PO DAILY 06/17/22 Rx famotidine 20 mg tablet (Pepcid AC) 20 mg PO DAILY #30 tabs 06/24/22 Rx methylprednisolone 16 mg tablet See Rx Instructions .Route 06/24/22 Rx (Medrol) .COMPLEX #20 tabs ondansetron 4 mg disintegrating 4 mg PO Q6H PRN nausea a
[2022-07-06] MEDS: DEXTROSE 5%/LACTATED RINGERS 1,000 ML 150 ML IV CONT ×3 (00:35→14:38)
[2022-07-06] MEDS: ONDANSETRON INJ 4 MG/2 ML VIAL IV PUSH ×2 (04:33→10:33)
[2022-07-06] MEDS: FAMOTIDINE 20 MG/2 ML VIAL IV PUSH ×3 (04:33→21:28)
[2022-07-06 04:36] VITALS: BP 103/53; PULSE 25; PULSE 62; O2SAT 94
[2022-07-06 04:37] VITALS: RESP 16; TEMP 36.7
--- NOTE | 2022-07-06 04:38 | PC.NURSE ---
Heart rate doppled. Heart rate of 155 bpm.
[2022-07-06] MEDS: methylPREDNISolone SOD SUCC 40 MG VIAL 16 MG IV PUSH ×3 (05:27→21:28)
--- NOTE | 2022-07-06 06:32 | WPDGIPROGNO ---
Progress Note: A&P Assessment and Plan (1) Hyperemesis gravidarum: Code(s): O21.0 - Mild hyperemesis gravidarum Status: Acute Assessment and Plan: It appears that all reasonable approaches to treat her nausea and hyperemesis have been utilized. I agree with rehydration and intravenous steroids. She is also receiving ondansetron. I have occasionally seen some benefit with Reglan but because of its possible side effects I think that it would be best to avoid it. She admitted that she did not fill a prescription for methylprednisolone to take as an outpatient. 07/06/2022 tolerating some liquids this morning. She does not care for the protein shake. She did have some dry heaves. She is going to try old male and cereals for lung (2) Weight loss: Code(s): R63.4 - Abnormal weight loss Status: Acute Assessment and Plan: She has lost about 40 lb so far fortunately however her albumin is still reasonably good at 3.8, hence I do not think this qualifies as malnutrition at this point. (3) Gallbladder sludge: Code(s): K82.8 - Other specified diseases of gallbladder Status: Acute Assessment and Plan: I do not think biliary disease is accounting for symptoms due the fact that she has not had any episodes of biliary colic type pain and her symptoms are not related to eating per se. Plan I agree with the regimen has been initiated. I told her that would like her to not try to force herself to eat tonight. She has pineapple and cottage cheese in front of her now. I think we may want to give her a more concentrated diet with protein shakes etcetera and avoid fiber such as fruits and vegetables for the time being. Subjective Date/time seen: 07/06/22 06:32 she seems to have had a pretty good night. Sleeping when I came into the room. I told her that I am going to try her on a high-protein diet. I explained that at home would probably have her use dietary supplements are than try to eat full meals with vegetables etc. she has had some dry heaves this morning but is tolerating 7 up. She does not care for the taste of her protein supplement. She has just ordered some Cheerios and oatmeal and is eager to try that. Exam Const: General: alert and tired appearing Orientation/consciousness: patient oriented x3 Resp: Auscultation: clear to auscultation bilaterally Cardio: Rhythm: regular rhythm GI: Inspection: other (Rounded due to ) GI Palp: Yes Soft to palpation, No Tenderness to palpation present (GI) and Yes No hepatosplenomegaly present Auscultation: normal bowel sounds Neuro: General: patient oriented x3 Objective Data Vital Signs Vital Signs: Vital Signs - 24 hr 07/05/22 06:59 07/05/22 12:05 07/05/22 12:06 Temperature Pulse Rate 78 65 Respiratory Rate Blood Pressure 101/58 L 102/55 L Pulse Oximetry 98 98 97 07/05/22 21:33 07/06/22 04:36 07/05/22 07:00 Temperature 36.1 C L Pulse Rate 65 62 Respiratory Rate Blood Pressure 99/56 L 103/53 L Pulse Oximetry 94 07/05/22 12:07 07/05/22 21:33 07/06/22 04:37 Temperature 36.2 C L 37.6 C H 36.7 C Pulse Rate 65 Respiratory Rate 16 16 Blood Pressure 99/56 L Pulse Oximetry Intake/Output Intake/Output: Intake & Output 07/03/22 07/04/22 07/05/22 07/06/22 23:59 23:59 23:59 23:59 Intake Total 1000 3050 1000 Output Total 100 1550 Balance 900 1500 1000 Meds/Results Medications: Active Medications Generic Name Dose Route Start Last Admin Trade Name Freq PRN Reason Stop Dose Admin Famotidine 20 mg 07/05/22 04:45 07/06/22 04:33 Famotidine 20 Mg/2 Ml Vial IV PUSH 20 mg Q12HR ROMELIA Administration Dextrose/Lactated Ringer's 1,000 mls @ 150 mls/hr 07/04/22 21:20 07/06/22 00:35 Dextrose 5%/Lactated Ringers IV CONT 150 mls/hr .Q6H40M ROMELIA Administration Methylprednisolone Sodium Succinate 16 mg 07/05/22 05:00 07/06/22 05:27 Methylprednisolone Sod
[2022-07-06] MEDS: PROMETHAZINE HCL 25 MG SUPP.RECT RECTAL ×2 (09:03→16:55)
--- NOTE | 2022-07-06 12:37 | PM.OBPNVD ---
OB - PN: Subj Subjective Date/time seen: 07/06/22 0830 Interval history: She still feels nausea, last emesis 0400, stomach acid. She overall feels better. She stated she does not like taking medication. No spotting. OB - PN: Obj Data Labs 07/04/22 19:45 OB - PN A/P Assessment and Plan (1) Hyperemesis gravidarum: Code(s): O21.0 - Mild hyperemesis gravidarum Status: Acute Assessment and Plan: Severe Hyperemesis. Patient does not take medication at home as recommended. Dehydration improved with IV hydration. GI consult appreciated. Will obtain Nutrition consult to discuss optimal high protein diet. Emphasized with patient the importance of small frequent meals and high protein and taking medication when she is discharged. Time Spent With Patient Time: Total time spent is greater than 50% in coordination of care (as documented) at patient's floor/unit and/or counseling patient: Exam Const: General: cooperative Eyes: General: appearance normal, both eyes and all related structures Resp: Effort & Inspection: normal respiratory effort GI: Other: no guarding or rebound Skin: General skin exam: normal color Extrem: General: normal to inspection and other (nontender)
[2022-07-06 17:00] VITALS: TEMP 36.6
[2022-07-06 17:21] VITALS: BP 100/71; PULSE 68
[2022-07-06] MEDS: guaiFENesin/CODEINE (*CRX) 200/20 MG 10 ML SYRUP PO (20:49)
--- NOTE | 2022-07-06 23:27 | PC.NURSE ---
pt states she knows she is supposed to try to eat every 2 hours but already knows she won't be able to keep anything down and stated she wants to sleep.
[2022-07-07] VITALS (10 sets, daily range): BP systolic 100–117; BP diastolic 65–75; PULSE 46–64; RESP 14–16; TEMP 36.3–36.6; O2SAT 94–99
[2022-07-07] MEDS: DEXTROSE 5%/LACTATED RINGERS 1,000 ML 150 ML IV CONT ×2 (01:49→09:56)
[2022-07-07] MEDS: methylPREDNISolone SOD SUCC 40 MG VIAL 16 MG IV PUSH ×3 (05:14→23:01)
--- NOTE | 2022-07-07 08:41 | PC.NURSE ---
0668- Dr. Hernandez at bedside. 8292- Dr. Snider at bedside. Plan of care discussed. Draw CMP, change IV medication to PO.
[2022-07-07 09:10] LABS: Alanine Aminotransferase 75 U/L (6-35); Alkaline Phosphatase 66 U/L (38-126); Anion Gap 7 mmol/L (8-16); Aspartate Amino Transferase 54 U/L (14-36); Bilirubin,Total 0.7 mg/dL (0.2-1.3); Calcium 8.5 mg/dL (8.4-10.2); Carbon Dioxide 24 mmol/L (22-30); Chloride 105 mmol/L (98-107); Estimated CRCL calculation 179 ml/min; Estimated Glomerular Filt Rate > 60; Glucose 144 mg/dL (65-110); Potassium 3.1 mmol/L (3.4-5.0); Sodium 136 mmol/L (137-145)
[2022-07-07] MEDS: FAMOTIDINE 20 MG TABLET PO (09:10)
[2022-07-07 09:23] LABS: Blood Urea Nitrogen < 2 mg/dL (7-17)
[2022-07-07] MEDS: ONDANSETRON HCL ODT 4 MG TABLET PO (10:54)
--- NOTE | 2022-07-07 12:30 | PC.NURSE ---
1210- Dr. Snider notified of patient's lab results and how she tolerated breakfast. Orders received.
--- NOTE | 2022-07-07 12:33 | PC.NURSE ---
Patient refuses to take suppository.
--- NOTE | 2022-07-07 12:45 | WPDGIPROGNO ---
Progress Note: A&P Assessment and Plan (1) Hyperemesis gravidarum: Code(s): O21.0 - Mild hyperemesis gravidarum Status: Acute Assessment and Plan: It appears that all reasonable approaches to treat her nausea and hyperemesis have been utilized. I agree with rehydration and intravenous steroids. She is also receiving ondansetron. I have occasionally seen some benefit with Reglan but because of its possible side effects I think that it would be best to avoid it. She admitted that she did not fill a prescription for methylprednisolone to take as an outpatient. 07/06/2022 tolerating some liquids this morning. She does not care for the protein shake. She did have some dry heaves. She is going to try old male and cereals for lung 07/07/2022 not much improvement over yesterday. Thinking about food makes her want to vomit. She did keep down some cereal and liquids yesterday (2) Weight loss: Code(s): R63.4 - Abnormal weight loss Status: Acute Assessment and Plan: She has lost about 40 lb so far fortunately however her albumin is still reasonably good at 3.8, hence I do not think this qualifies as malnutrition at this point. (3) Gallbladder sludge: Code(s): K82.8 - Other specified diseases of gallbladder Status: Acute Assessment and Plan: I do not think biliary disease is accounting for symptoms due the fact that she has not had any episodes of biliary colic type pain and her symptoms are not related to eating per se. Plan I agree with the regimen has been initiated. I told her that would like her to not try to force herself to eat tonight. She has pineapple and cottage cheese in front of her now. I think we may want to give her a more concentrated diet with protein shakes etcetera and avoid fiber such as fruits and vegetables for the time being. I wish I had more suggestions to offer but this point I am not sure there is anything else to do differently. Subjective Date/time seen: 07/07/22 12:45 she feels she has not made a great deal of progress at this point. Thinking about eating causes her to get dry heaves. She did keep some cereal down yesterday. Denies abdominal pain, except when vomiting Exam Const: General: alert and tired appearing Orientation/consciousness: patient oriented x3 Resp: Auscultation: clear to auscultation bilaterally Cardio: Rhythm: regular rhythm GI: Inspection: other (Rounded due to ) GI Palp: Yes Soft to palpation, No Tenderness to palpation present (GI) and Yes No hepatosplenomegaly present Auscultation: normal bowel sounds Neuro: General: patient oriented x3 Objective Data Vital Signs Vital Signs: Vital Signs - 24 hr 07/06/22 17:21 07/07/22 05:13 07/06/22 17:00 Temperature 36.6 C Pulse Rate 68 62 Respiratory Rate Blood Pressure 100/71 100/67 Pulse Oximetry 98 07/07/22 05:21 Temperature 36.4 C Pulse Rate Respiratory Rate 16 Blood Pressure Pulse Oximetry Intake/Output Intake/Output: Intake & Output 07/04/22 07/05/22 07/06/22 07/07/22 23:59 23:59 23:59 23:59 Intake Total 1000 3050 4000 1200 Output Total 100 1550 1150 1475 Balance 900 1500 2850 -275 Meds/Results Medications: Active Medications Generic Name Dose Route Start Last Admin Trade Name Freq PRN Reason Stop Dose Admin Calcium Carbonate 200 mg 07/07/22 06:49 Calcium Carbonate (Tums) 500 Mg (200 Mg Elemental) PO Q6H PRN Indigestion Diphenhydramine HCl 50 mg 07/07/22 12:21 Diphenhydramine Hcl Cap 25 Mg Capsule PO Q6H PRN Itching Famotidine 20 mg 07/07/22 09:00 07/07/22 09:10 Famotidine 20 Mg Tablet PO 20 mg Q12HR ROMELIA Administration Guaifenesin/Codeine Phosphate 10 ml 07/06/22 15:27 07/06/22 20:49 Guaifenesin/Codeine (*Crx) 200/20 Mg 10 Ml Syrup PO 10 ml Q4H PRN Administration Cough Dextrose/Lactated Ringer's 1,000 mls @ 150 mls/hr 07/04/22 21:20 07/07/22 09:56
--- NOTE | 2022-07-07 12:49 | P.PNOB_ITS ---
OB - PN: Subj Subjective Date/time seen: 07/07/22 12:49 Interval history: She states today she feels better than she has felt in since admission. Nausea is better but she states the food aversions are severe and she can eat it but throws it up. She has the reflux throat irritation. No lightheadedness or dizziness. She has been trying to sit up in bed more. OB - PN: Obj Data Labs 07/07/22 08:47 Labs: Laboratory Results - last 24 hr 07/07/22 08:47 Sodium 136 L Potassium 3.1 L Chloride 105 Carbon Dioxide 24 Anion Gap 7 L BUN < 2 L Creatinine 0.50 L Estim Creat Clear Calc 179 Estimated GFR > 60 Glucose 144 H Calcium 8.5 Total Bilirubin 0.7 AST 54 H ALT 75 H Alkaline Phosphatase 66 Total Protein 6.0 L Albumin 3.0 L OB - PN A/P Assessment and Plan (1) Severe hyperemesis gravidarum: Code(s): O21.1 - Hyperemesis gravidarum with metabolic disturbance Status: Acute Assessment and Plan: Will continue to try small meals. She is refusing some of the medication. She mentioned that she does not like to take medication. Discussed hyperemesis with her and discussed possible TPN. Nutrition did see her. Will add Banana bag. Will contact [facility] regarding further recommendations/TPN initiation. Time Spent With Patient Time: Total time spent is greater than 50% in coordination of care (as documented) at patient's floor/unit and/or counseling patient: Review of Systems Constitutional: Constitutional: Reports no additional constitutional complaints Respiratory: Respiratory: Reports no additional respiratory complaints Gastrointestinal: Gastrointestinal: Reports as per HPI Musculoskeletal: Musculoskeletal: Reports no additional musculoskeletal complaints Exam Const: General: No acute distress Eyes: General: appearance normal, both eyes and all related structures Resp: Effort & Inspection: normal respiratory effort Cardio: Rate: regular rate Rhythm: regular rhythm GI: Other: nontender Extrem: General: normal to inspection
[2022-07-07] MEDS: POTASSIUM CHLORIDE INJ 40 MEQ in SODIUM CHLORIDE 0.9% IV 500 ML 60 MEQ IVPB (13:09)
--- NOTE | 2022-07-07 13:29 | PC.NURSE ---
heart rate doppled - 150 BPM
[2022-07-07] MEDS: METOCLOPRAMIDE HCL INJ 10 MG/2 ML VIAL IV PUSH ×2 (14:44→21:00)
--- NOTE | 2022-07-07 15:07 | PC.NURSE ---
1320- patient ate one tristian cracker for lunch with little sips of water. 1400- Dr. Snider at bedside. Reviewed plan of care, orders received.
--- NOTE | 2022-07-07 19:00 | PC.NURSE ---
1900- heart tones doppled - 155 bpm
[2022-07-07] MEDS: PROCHLORPERAZINE 25 MG SUPP.RECT RECTAL (19:09)
--- NOTE | 2022-07-07 20:00 | PC.NURSE ---
2000- PT given jello, PT states she had a couple bites of jello and a sip of water.
[2022-07-07] MEDS: THIAMINE HCL INJ 100 MG, FOLIC ACID INJ 1 MG, MULTIVITAMINS-12 INJ VIAL 1 5 ML, MULTIVI... IV CONT (20:47)
[2022-07-07] MEDS: FAMOTIDINE 20 MG/2 ML VIAL IV PUSH (21:00)
--- NOTE | 2022-07-08 01:28 | PC.NURSE ---
PT given 4oz of jello, tolerated well.
[2022-07-08 03:20] VITALS: PULSE 68; O2SAT 99
--- NOTE | 2022-07-08 03:20 | PC.NURSE ---
PT given 8oz of apple sauce and 1 packet of tristian crackers, tolerated well.
[2022-07-08 03:21] VITALS: BP 131/66; PULSE 65
[2022-07-08] MEDS: METOCLOPRAMIDE HCL INJ 10 MG/2 ML VIAL IV PUSH ×2 (03:21→06:56)
--- NOTE | 2022-07-08 06:05 | PC.NURSE ---
0605- Report given to Jerome Reddy RN
--- NOTE | 2022-07-08 08:17 | PM.OBPNVD ---
OB - PN: Subj Subjective Date/time seen: 07/08/22 08:17 Interval history: She states she has been able to tolerate food and liquids, minimal nausea since last night. OB - PN: Obj Data Labs 07/07/22 08:47 Labs: Laboratory Results - last 24 hr 07/07/22 08:47 Sodium 136 L Potassium 3.1 L Chloride 105 Carbon Dioxide 24 Anion Gap 7 L BUN < 2 L Creatinine 0.50 L Estim Creat Clear Calc 179 Estimated GFR > 60 Glucose 144 H Calcium 8.5 Total Bilirubin 0.7 AST 54 H ALT 75 H Alkaline Phosphatase 66 Total Protein 6.0 L Albumin 3.0 L OB - PN A/P Assessment and Plan (1) Severe hyperemesis gravidarum: Code(s): O21.1 - Hyperemesis gravidarum with metabolic disturbance Status: Acute Assessment and Plan: Much improved. Tolerating fluids and liquids. Will switch the IV meds to oral. Continue suppositories. Repeat labs this morning. Saline lock IV. If she continues to do well on oral medication then anticipate discharge. Time Spent With Patient Time: Total time spent is greater than 50% in coordination of care (as documented) at patient's floor/unit and/or counseling patient: Exam Const: General: comfortable, no acute distress, alert and awake Eyes: General: appearance normal, both eyes and all related structures Resp: Effort & Inspection: normal respiratory effort Skin: General skin exam: normal color Neuro: General: oriented to person, oriented to place and oriented to time Extrem: General: normal to inspection Psych: Appearance: grossly normal
[2022-07-08 08:53] VITALS: BP 114/67; PULSE 87
[2022-07-08 08:55] VITALS: RESP 18; TEMP 36.4; O2SAT 100
[2022-07-08 09:02] LABS: Alanine Aminotransferase 119 U/L (6-35); Albumin Level 3.1 g/dL (3.5-5.1); Alkaline Phosphatase 65 U/L (38-126); Anion Gap 5 mmol/L (8-16); Aspartate Amino Transferase 87 U/L (14-36); Bilirubin,Total 0.7 mg/dL (0.2-1.3); Blood Urea Nitrogen 3 mg/dL (7-17); Calcium 8.4 mg/dL (8.4-10.2); Carbon Dioxide 27 mmol/L (22-30); Chloride 103 mmol/L (98-107); Estimated CRCL calculation 152 ml/min; Estimated Glomerular Filt Rate > 60; Glucose 108 mg/dL (65-110); Potassium 3.2 mmol/L (3.4-5.0); Sodium 135 mmol/L (137-145)
[2022-07-08] MEDS: FAMOTIDINE 20 MG TABLET PO (09:40)
[2022-07-08] MEDS: PROCHLORPERAZINE 25 MG SUPP.RECT RECTAL (11:12)
[2022-07-08] MEDS: METOCLOPRAMIDE HCL 10 MG TABLET PO (11:13)
[2022-07-08] MEDS: methylPREDNISolone 4 MG TABLET 16 MG PO (11:13)
[2022-07-08 11:37] LABS: Appearance Urine Clear (Clear); Bilirubin Urine Negative (Negative); Blood Urine Trace-intact (Negative); Color Urine Yellow (Yellow); Glucose Urine UA Negative (Negative); Ketones Urine Negative (Negative); Leukocyte Esterase Ur Negative LEU/UL (Negative); Mucus Urine Rare /lpf; Nitrate Urine Negative (Negative); Protein Urine Negative (Negative); RBC Urine 0-2 /hpf (0-2); Specific Grav Ur 1.015 (1.001-1.035); Squamous Epithelial Cell Urine Rare /hpf (Few); WBC Urine 0-3 /hpf; pH Urine 7.5 (5.0-9.0)
[2022-07-08 11:45] LABS: Add Urine Microscopic? YES
[2022-07-11 07:35] LABS: Vitamin B1 <6 nmol/L (8-30)
--- NOTE | 2022-07-15 11:34 | PM.OBDSVD ---
DS: Admitting Diagnosis Discharge Date 07/08/22 Admitting Diagnosis Severe hyperemesis gravidarum DS: Discharge Diagnosis Discharge Diagnosis Plan Severe hyperemesis gravidarum Severe dehydration OB - DS: Summary Hospital Course Hospital Course: She was admitted for IV hydration. She had IV fluids and antiemetics started. Steroids started. She did refuse some of the antiemetics suppository because she did not feel it was helping. She was informed of need to have some kind of antiemetics and not go distances without anything. She has acid michelle started. She also had a cough on admission which triggered the emesis, this did resolve prior to discharge no fevers. She had a GI consult and they agreed with current management. She also had Nutrition consult. She was hydrated after approximately 2 days and was started on Banana bag. Her nausea and vomiting started improving on 07/07. She agreed to administer meds on a schedule. The evening of 07/07 and on she was feeling better. She had an appetite and tolerated most of her meal. She also had serially labs performed daily and had electrolyte replacement. She was discharge to home on antiemetics and to continue the steroid taper. Follow up instructions/discharge instructions provided. She had daily heart tone assessment in the hospital which was normal heart tones. OB Procedures : None OB Procedures Intrapartum: Other (IV hydration) OB Procedures: : Other Time Spent with Patient Time attestation: Total time spent providing and/or coordinating discharge services: Exam Const: General: comfortable and no acute distress HENMT: Head: normal to inspection Eyes: General: appearance normal, both eyes and all related structures Resp: Effort & Inspection: normal respiratory effort GI: Inspection: normal to inspection GI Palp: No abdominal tenderness Skin: General skin exam: normal color Extrem: General: normal to inspection and no calf tenderness Discharge Plan Discharge Attending physician on discharge: Pravin Snider Consulting providers: Abundio Hernandez Discharging Clinician: Pravin Snider Anticipated Discharge Date/Time: 07/08/22 14:30 Patient Disposition: Home, Self-Care Activity: as tolerated Diet: as tolerated Discharge Instructions: OB ANTEPARTUM DISCHARGE INSTRUCTIONS This information is given to help you properly care for yourself at home after your discharge from the hospital. Follow these instructions until your doctor tells you otherwise. DIET: Additional Diet Instructions: Advance as tolerated. ACTIVITY: Additional Activity Instructions: as tolerated RETURN TO LABOR AND DELIVERY IF YOU HAVE: Contractions may feel like abdominal pain, tightening, cramping, pressure, back ache, or thigh ache. . OTHER INSTRUCTIONS: Call Dr. 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 Valuables released to patient or family? Medications from home returned to patient? IF YOU HAVE ANY QUESTIONS REGARDING THESE INSTRUCTIONS, PLEASE CALL [phone]. IF PROBLEMS ARISE, CALL YOUR PROVIDER. IF EMERGENCY CARE IS NEEDED, [facility] EM[facility] ROOM IS AVAILABLE 24 HOURS A DAY. Patient Instructions: Hyperemesis Gravidarum (DC) Stand Alone Forms: General Discharge Information, Work/School Release IP Follow-up/Referrals: Pravin Snider MD [Physician] - Discharge Medications: New calcium carbonate 500 mg calcium (1,250 mg) Tablet,Chewable 200 mg PO Q6H PRN (Reason: Indigestion) 0RF prochlorperazine 25 mg Suppository 25 mg RECTAL Q12H PRN (Reason: Nausea And Vomiting) 0RF Continued 28-800 mg-mcg Tablet 1 tablet PO DAILY ondansetron 4 mg tablet,disintegrating 4 mg PO Q6H PRN (Reason: nausea and vomiting) Qty: 30 0R
== END 2022-07-08 14:45 | disposition home or self-care (01) | DRG 566 ==
PROVIDERS: Admitting Provider Obstetrics & Gynecology; Visit Provider Obstetrics & Gynecology
DX: O21.1 Hyperemesis gravidarum with metabolic disturbance (principal); K82.8 Other specified diseases of gallbladder; Z3A.16 16 weeks gestation of pregnancy; O99.612 Diseases of the digestive system complicating pregnancy, second trimester; R63.4 Abnormal weight loss
CPT/HCPCS: 36415; 80053; 81001; 84425; 87086; 87088; 96361; 96365; 96374; 96375; 96376; A9270; G0378; G0379; J0690; J2405; J2765; J2920; J3411; J3475; J3480; J7040; J7121

== ENCOUNTER 2022-12-05 08:08 | Outpatient (CLI) | payer OTHER, SELFPAY ==
[2022-12-05 08:41] VITALS: BP 111/77; PULSE 71
[2022-12-05] MEDS: TERBUTALINE SULFATE 1 MG/ML VIAL 0.25 MG SUB-Q (08:41)
[2022-12-05 09:01] VITALS: BP 122/64; PULSE 87
[2022-12-05 09:15] VITALS: BP 111/65; PULSE 96
[2022-12-05 09:30] VITALS: BP 122/63; PULSE 85
[2022-12-05 09:45] VITALS: BP 115/63; PULSE 85
[2022-12-05 10:00] VITALS: BP 117/70; PULSE 95
--- NOTE | 2022-12-05 12:35 | W.PM.PROC2 ---
Procedure Note - Detailed Date of Procedure 12/05/22 Pre-op Diagnosis External Version Post-op Diagnosis Same Procedure Performed External cephalic version Surgeon Pravin Snider MD Anesthesia None Indications Persistent breech presentation at term. Findings On bedside ultrasound fetus in breech presentation head flexed head to the right of abdomen, reactive NST an occasional contraction prior to the procedure. She declined any epidural analgesia. Description of Procedure After informed consent was obtained, a saline lock was started. She had a reactive NST and ultrasound confirmed still persistent breech presentation she was given 0.25 mcg of IV terbutaline. The external cephalic version was attempted with patient in Trendelenburg position with forward and head did get to the mid but returned this was done twice the heart rate was visualized with ultrasound in between each attempt and was noted to be normal after the 2nd attempt the head was noted to be more to the left and attempted a version towards the patient's left and the head CT to the middle but then returned back breech. The procedure ended. heart tone was in the 150s. Patient tolerated procedure well. External cephalic version unsuccessful. Estimated Blood Loss 0 Drains No Packing No Complications No immediate complications Condition Stable Disposition No change [facility] Billing Surgery - Charge Forward: Surgery Billing
== END 2022-12-05 10:25 | disposition home or self-care (01) ==
LOC: ANHOBOP 08:13 → ANHOBPP 08:14
PROVIDERS: Visit Provider Obstetrics & Gynecology
DX: O32.1XX0 Maternal care for breech presentation, not applicable or unspecified (principal); Z3A.00 Weeks of gestation of pregnancy not specified
CPT/HCPCS: 59412; 96372; 99199; J3105

== ENCOUNTER 2022-12-15 08:10 | Outpatient (RCR) | payer SELFPAY ==
[2022-11-09 11:08] VITALS: BP 110/73; PULSE 76
[2022-11-16 09:31] VITALS: BP 111/64; PULSE 77
[2022-11-16 10:15] VITALS: BP 111/64; PULSE 79
[2022-11-26 14:50] VITALS: BP 106/70; PULSE 92
--- NOTE | ~2022-12-15 | US_ITS ---
EXAMINATION: US OB limited DATE: 11/09/2022 10:53 INDICATION: . Third trimester. TECHNIQUE: Real-time ultrasound of the pelvis was performed. COMPARISON: None. FINDINGS: There is a single fetus in breech presentation. The placenta is fundal. heart rate is 150 beat s per minute (bpm). The amniotic fluid index is 12.6 cm, which is normal. IMPRESSION: 1. Single living fetus in breech presentation. 2. Normal amniotic fluid index. Reviewed, dictated and finalized at location A.
--- NOTE | ~2022-12-15 | US_ITS ---
US OB limited 11/26/2022 14:56 Indication: Amniotic fluid index. Procedure: High-resolution Limited obstetrical ultrasound Comparison: No prior studies for comparison. Findings: There is a single living intrauterine in breech presentation. heart rate is 140 BPM. Placenta is posterior. SAMUEL is normal measuring 14 cm. Impression: 1: Single living intrauterine in breech presentation. 2: Normal SAMUEL measures 14 cm. Reviewed, dictated and finalized at location A. Impression: 1: Single living intrauterine in breech presentation. 2: Normal SAMUEL measures 14 cm.
--- NOTE | ~2022-12-15 | US_ITS ---
EXAMINATION: US OB limited DATE: 12/02/2022 19:24 INDICATION: Evaluate SAMUEL. TECHNIQUE: Real-time ultrasound of the pelvis was performed. COMPARISON: None. FINDINGS: There is a single living fetus in breech presentation, longitudinal lie. The placenta is posterior. Cervix not visualized. heart rate is 144 beats per minute (bpm). The amniotic fluid index is 15 .0 cm, which is normal (5th to 95th percentile is 7.5 to 24.4 cm). IMPRESSION: 1. Single living fetus in breech presentation. 2. Normal SAMUEL of 15.0 cm. Reviewed, dictated and finalized at location K.
--- NOTE | ~2022-12-15 | US_ITS ---
US OB limited DATE: 11/16/2022 09:59 INDICATION: Amniotic fluid index measurement TECHNIQUE: Real-time imaging, color flow imaging and Doppler analysis COMPARISON: 11/09/2022 obstetrical ultrasound Limited examination FINDINGS: Live blackman intrauterine gestation, fetus in longitudinal lie, breech presentation with heart rate 144 bpm. Frontal placenta. Amniotic fluid index measures 19.1 cm, normal. (5th percentile SAMUEL: 7.9 cm; 95th percentile SAMUEL: 24.9 cm) IMPRESSION: Amniotic fluid index measures 19.1 cm, normal Breech presentation Reviewed, dictated and finalized at Location A. Reviewed, dictated and finalized at location []
--- NOTE | ~2022-12-15 | US_ITS ---
EXAMINATION: US OB BPP wo non-stress DATE: 12/15/2022 09:28 INDICATION: In vitro fertilization . Third trimester. TECHNIQUE: Real-time pelvic ultrasound was performed. COMPARISON: Ultrasound 12/02/2022 FINDINGS: There is a single living fetus in breech presentation. The placenta is posterior. heart rate i s 135 beats per minute (bpm). The amniotic fluid index is 12.9 cm. Biophysical profile performed by the technologist: breathing (30 sec sustained breathing in 30 minutes): 2 out of 2 movement (3 gross body movements in 30 minutes): 2 out of 2 tone (one episode of [id number]-xkwikex limb movement): 2 out of 2 Amniotic fluid pocket (2 cm): 2 out of 2 Total score: 8 out of 8 IMPRESSION: 1. Single living fetus in breech presentation. 2. Biophysical profile 8 out of 8. Reviewed, dictated and finalized at location A.
[2022-12-15 08:51] VITALS: BP 113/78; PULSE 79
== END 2023-01-23 13:08 | disposition home or self-care (01) ==
LOC: ANHOBOP 08:10
PROVIDERS: Visit Provider Obstetrics & Gynecology
DX: O09.813 Supervision of pregnancy resulting from assisted reproductive technology, third trimester (principal); Z3A.33 33 weeks gestation of pregnancy
CPT/HCPCS: 59025; 76815; 76819

== ENCOUNTER 2022-12-20 10:30 | Inpatient (IN) | payer SELFPAY ==
[2022-12-20] VITALS (47 sets, daily range): BP systolic 97–136; BP diastolic 54–101; PULSE 41–95; RESP 15–20; TEMP 36.1–36.6; O2SAT 97–100; BMI 29.8
--- NOTE | 2022-12-20 11:04 | PM.IMHP ---
H&P: HPI History of Present Illness Date/Time: 12/20/22 11:04 Chief Complaint: Breech presentation Narrative: She is here for scheduled primary section for breech presentation. She had a prior failed ECV. She is at 39 weeks and 4 days. This is an sever get by IVF conception. course significant for hyperemesis gravidarum. She has been getting surveillance due to IVF conception. She has been informed of risks benefits attempted vaginal and section risks benefits and has opted for primary section. Review of Systems Review of Systems: All systems reviewed & are unremarkable except as noted in HPI and below Constitutional: Constitutional: Reports no additional constitutional complaints and Denies headache(s) Eyes: Eyes: Denies spots in vision ENT: Reports system reviewed and no additional complaints, except as documented and Denies headache(s) Cardiovascular: Cardiovascular: Denies chest pain and Denies dyspnea Respiratory: Respiratory: Denies dyspnea Gastrointestinal: Gastrointestinal: Reports no additional gastrointestinal complaints Genitourinary: Genitourinary: Reports amenorrhea Musculoskeletal: Musculoskeletal: Reports no additional musculoskeletal complaints Integumentary/Breasts: Skin/Breast: Denies breast mass and Denies rash Neurologic: Denies headache(s) Psychiatric: Psychiatric: Reports no additional psychiatric complaints PMFSH Past Medical History Medical History No pertinent past medical history Surgical History Surgical History S/P ACL surgery Family History Family History Other Asthma History of cancer Social History Social History Smoking status: Never smoker Alcohol intake: never Substance use: never Substance use type: does not use Lack of Transportation: No Lack of Food: Never True Current Housing: I Have Housing Concerned About Future Housing: No Difficulty Paying Gas/Electric Bills: No Difficulty Paying for Meds: No Currently Unemployed: No Difficulty w/ Childcare or Family Care: No Living arrangements: with family Gender identity (if verbalized by the patient): Female Spiritual care concerns: No Meds Home Medications and Allergies Home Medications Medication Instructions Recorded Confirmed Type vit no.133-ferrous 1 tablet PO DAILY 06/16/22 12/18/22 History fumarate 28 mg-folic acid 800 mcg tablet () ondansetron 4 mg disintegrating 4 mg PO Q6H PRN nausea and 12/12/22 12/18/22 Rx tablet vomiting #30 tabs Allergies Allergy/AdvReac Type Severity Reaction Status Date / Time Penicillins Allergy Intermediate HIVES Verified 12/15/22 10:26 Vital Signs Vital Signs - 24 hr 12/20/22 10:57 Pulse Rate 84 Blood Pressure 126/89 Exam Const: General: no acute distress Eyes: General: appearance normal, both eyes and all related structures Resp: Effort & Inspection: normal respiratory effort Cardio: Rate: regular rate GI: Other: Gravid no fundal tenderness no right upper quadrant pain Skin: General skin exam: no rashes or lesions noted Neuro: Cognition (Neuro): normal cognition Extrem: General: normal to inspection Psych: Mental Status: mental status grossly normal Assessment and Plan Assessment and plan (1) Breech presentation: Code(s): O32.1XX0 - Maternal care for breech presentation, not applicable or unspecified Status: Acute Assessment and Plan: Will proceed with primary section.
--- NOTE | 2022-12-20 11:08 | LDADM ---
This patient, Nury Méndez, was admitted to Labor/Delivery/Recovery 120 on 12/20/22 at 10:30. Plans for labor, pain management and were discussed with patient. Patient/family oriented to hospital policies and general routines including ID bracelet, bed and alarms, visiting hours, pain management, procedures, bathroom and other care routines, personal items, smoking policy, room service/diet and guest tray routines, security routines, and visiting hours. Patient/Family are encouraged to report perceived risks to care and to ask questions if they do not understand what they are told or what they should do. See OBIX for further documentation.
[2022-12-20 11:36] LABS: Basophils Percent Auto 0.5 % (0.2-1.2); Eosinophils Absolute Auto 0.1 K/mm3 (0-0.3); Eosinophils Percent Auto 1.5 % (0-4.4); Hematocrit 35.1 % (37.0-47.0); Hemoglobin 11.6 g/dL (12.0-15.0); Immature Granulocyte Absolute 0.01 K/mm3 (0.00-0.031); Immature Granulocyte Percent A 0.2 % (0-0.5); Lymphocytes Absolute Auto 3.05 K/mm3 (0.9-3.2); Lymphocytes Percent Auto 47.1 % (18.3-44.2); Mean Corpuscular Hemoglobin 30.5 pg (26-34); Mean Corpuscular Volume 92.4 fl (80-100); Mean Platelet Volume 10.3 fl (7.4-10.4); Monocytes Absolute Auto 0.5 K/mm3 (0.1-0.6); Monocytes Percent Auto 8.3 % (2.6-8.5); Neutrophils Absolute Auto 2.7 K/mm3 (1.3-6.7); Neutrophils Percent Auto 42.4 % (45.5-73.1); Platelet Count Result 205 k/mm3 (150-375); Red Cell Distribution Width 13.6 % (11.5-14.5); White Blood Count 6.5 K/mm3 (4.5-10.0)
[2022-12-20] MEDS: LACTATED RINGERS 1,000 ML 125 ML IV CONT (11:42)
--- NOTE | 2022-12-20 11:45 | WPDANESEPPF ---
Anes - Initial Pre Proc Eval Procedure: Operation Date: 12/20/22 12:00 Proposed Procedures p Primary Section - Pravin Snider MD Date/Time: 12/20/22 11:45 Surgeon: Pravin Snider MD Pre Op Diagnosis: C/S Patient Data Age: 32 Gender: F Height: 1.8 m Weight: 97 kg Last Vital Signs Pulse 95 12/20/22 11:16 BP 104/54 L 12/20/22 11:16 O2 Del Method Room Air 12/20/22 11:07 Allergies Allergy/AdvReac Type Severity Reaction Status Date / Time Penicillins Allergy Intermediate HIVES Verified 12/15/22 10:26 Home Medications Medication Instructions Recorded Confirmed Type vit no.133-ferrous 1 tablet PO DAILY 06/16/22 12/18/22 History fumarate 28 mg-folic acid 800 mcg tablet () ondansetron 4 mg disintegrating 4 mg PO Q6H PRN nausea and 12/12/22 12/20/22 Rx tablet vomiting #30 tabs Laboratory Tests 12/20/22 11:22 WBC 6.5 K/mm3 (4.5-10.0) RBC 3.80 L M/mm3 (4.2-5.4) Hgb 11.6 L g/dL (12.0-15.0) Hct 35.1 L % (37.0-47.0) MCV 92.4 fl (80-100) MCH 30.5 pg (26-34) MCHC 33.0 g/dl (32-36) RDW 13.6 % (11.5-14.5) Plt Count 205 k/mm3 (150-375) MPV 10.3 fl (7.4-10.4) Immature Gran % (Auto) 0.2 % (0-0.5) Neut % (Auto) 42.4 L % (45.5-73.1) Lymph % (Auto) 47.1 H % (18.3-44.2) [place] % (Auto) 8.3 % (2.6-8.5) Eos % (Auto) 1.5 % (0-4.4) Baso % (Auto) 0.5 % (0.2-1.2) Lymph # (Auto) 3.05 K/mm3 (0.9-3.2) [place] # (Auto) 0.5 K/mm3 (0.1-0.6) Eos # (Auto) 0.1 K/mm3 (0-0.3) Baso # (Auto) 0.0 K/mm3 (0.0-0.1) Abs Immat Gran (auto) 0.01 K/mm3 (0.00-0.031) Absolute Neuts (auto) 2.7 K/mm3 (1.3-6.7) Absolute Nucleated RBC 0.0 K/mm3 (0.0-0.012) Nucleated RBC % 0.0 % (0.0-0.2) RPR Pending Patient hx anesthesia problems: none Family hx anesthesia problems: none Results Review: All pre-operative results and documents have been reviewed as part of the pre-operative evaluation. [facility] Past Medical History Medical History No pertinent past medical history Surgical History Surgical History S/P ACL surgery Family History Family History Other Asthma History of cancer Social History Social History Smoking status: Never smoker Alcohol intake: never Substance use: never Substance use type: does not use Lack of Transportation: No Lack of Food: Never True Current Housing: I Have Housing Concerned About Future Housing: No Difficulty Paying Gas/Electric Bills: No Difficulty Paying for Meds: No Currently Unemployed: No Education: High School Diploma/GED Difficulty w/ Childcare or Family Care: No Living arrangements: with family Gender identity (if verbalized by the patient): Female Spiritual care concerns: No Anes - Eval Final PreProcedure Day of Procedure 12/20/22 11:45 Patient weight: overweight Heart: regular rate and rhythm Lungs: clear to auscultation Airway: Mallampati scale class 1 Neurological: alert and oriented Last oral intake: >/= 8 hours ASA classification: II Emergent: no Anesthetic plan: proceed Anesthesia type and monitoring: regional spinal and standard monitoring Results Review: All pre-operative results and documents have been reviewed as part of the pre-operative evaluation. Informed Consent: The patient's anesthetic plan and its attendant risks and benefits were discussed with the patient/family/POA. Questions were solicited and answers provided to the satisfaction of the patient/family/POA.
--- NOTE | 2022-12-20 11:53 | WPDHPUPDATE1 ---
History and Physical Update Update Date/Time: 12/20/22 11:53 History and Physical has been reviewed, including an updated exam of the patient. There are NO changes in the patient's condition. Risks, benefits, and alternatives have been discussed and questions answered. Patient agrees to proceed with procedure. Ultrasound performed at bedside and baby persist in breech presentation. Will proceed with primary section.
[2022-12-20] MEDS: ceFAZolin 2 GM/D5W 50 ML 2 GM/50 ML BAG IVPB (12:19)
[2022-12-20] MEDS: OXYTOCIN 30 UNITS/NS 500 ML 30 UNITS/500 ML BAG 125 UNITS IV CONT (15:10)
--- NOTE | 2022-12-20 15:19 | W.PM.PROC2 ---
Procedure Note - Detailed Date of Procedure 12/20/22 Pre-op Diagnosis Breech presentation Post-op Diagnosis Same Procedure Performed Primary low-transverse section Surgeon Pravin Snider MD Telephone Operator Receptionist Leslie Anesthesia Spinal Indications Patient at 39 weeks surrogate gestation via IVF with fetus in persistent breech presentation. Bedside ultrasound performed today and the fetus remains in the breech presentation. She opted for primary . Female 7 lb 4 oz Apgars 9 and 9. Findings Female arianna breech presentation normal uterus and fallopian tubes and ovaries. Description of Procedure After informed consent, risks and benefits of the procedure was discussed with the patient. The patient was taken to the operating room where she was placed in the dorsal lithotomy position with leftward tilt. After the placed epidural was placed by anesthesia. She was then prepped and draped in the usual sterile fashion. A Pfannenstiel skin incision was made with a scalpel and carried through to the underlying layer of fascia. The fascia was then nicked in the midline, extending bilaterally. The fascia was dissected off the rectus muscles bluntly and sharply, superiorly and inferiorly. The rectus muscles were in the midline, and peritoneum was identified and entered bluntly. The pelvic organs were visualized. The bladder blade was then inserted. The vesicouterine peritoneum was identified and entered sharply with Metzenbaum scissors and extended bilaterally and then the bladder flap was created digitally. The low transverse uterine incision was then made with the scalpel and extended with bilateral index fingers in a crescent-shaped fashion. The buttocks was present and was gently grabs and delivered through the uterine incision the legs were flexed and then delivered the torso was gently rotated and the arms were delivered flexed in a Pinard fashion. The head was then delivered. The nose and mouth suctioned with a bulb. The cord was clamped twice and cut. The infant was then handed off to the awaiting pediatric staff. The placenta was then delivered manually. The uterine cavity was sponge curretted. The uterus was then exteriorized. The uterine incision was then closed with 0 vicryl in a running locked fashion. Multiple figure of eight stitches with 0 vicryl was used for hemostasis. Hemostasis was obtained. A second layer of 0 vicryl was used in an imbricating fashion. Hemostasis was noted. The posterior cul-de-sac was irrigated and cleared of clots. The uterus was then returned to the abdomen. Bilateral gutters were cleared off all clots and debris. The uterine incision was inspected. There was an area at the middle of the incision that had a small amount of bleeding and a [id number] 0 Vicryl was used hemostasis was noted. Interceed placed on uterine incision and vertically on front of uterus. The intestinal fatty tissue was placed over the anterior uterus. The muscle bellies were inspected and noted to be hemostatic. The subfascial layer was noted to be hemostatic, and the fascia was closed with 0 Vicryl in a running fashion. The subcutaneous layer was irrigated. This layer was then closed with 3-0 Vicryl in a subcutaneous fashion. The skin was closed with Insorb katina. Skin dermabond applied at incision. All instruments, needle, and lap counts were correct x3. The patient was taken to the recovery room in stable condition. Estimated Blood Loss -500.0 Drains No Packing No Pathology None sent Complications No immediate complications Condition Stable Disposition Floor [facility] Billing Surgery - Charge Forward: Surgery Billing
[2022-12-20] MEDS: ONDANSETRON INJ 4 MG/2 ML VIAL IV PUSH ×2 (15:30→21:08)
--- NOTE | 2022-12-20 15:57 | OBPPTRN ---
Patient transferred to post room #280 via stretcher. Oriented to unit, room, information board, rooming in, admission packet and security measures. Patient verbalizes understanding.
[2022-12-20] MEDS: DEXTROSE 5%/0.45% SOD CHL 1,000 ML 125 ML IV CONT (19:53)
[2022-12-20] MEDS: KETOROLAC 30 MG/ML VIAL (*BKC) IV PUSH (21:47)
[2022-12-20] MEDS: METOCLOPRAMIDE HCL INJ 10 MG/2 ML VIAL IV PUSH (22:56)
[2022-12-20] MEDS: KCL 20 MEQ/D5/0.45% SOD CHL 1,000 ML 125 ML IV CONT (23:38)
[2022-12-21 03:50] VITALS: BP 107/65; PULSE 66; RESP 16; TEMP 36.6; O2SAT 99
[2022-12-21] MEDS: ONDANSETRON INJ 4 MG/2 ML VIAL IV PUSH (04:59)
[2022-12-21 06:04] LABS: Basophils Percent Auto 0.2 % (0.2-1.2); Eosinophils Absolute Auto 0.1 K/mm3 (0-0.3); Eosinophils Percent Auto 0.5 % (0-4.4); Hemoglobin 10.7 g/dL (12.0-15.0); Immature Granulocyte Absolute 0.03 K/mm3 (0.00-0.031); Immature Granulocyte Percent A 0.3 % (0-0.5); Lymphocytes Absolute Auto 2.29 K/mm3 (0.9-3.2); Lymphocytes Percent Auto 23.9 % (18.3-44.2); Mean Corpuscular HGB Conc 32.4 g/dl (32-36); Mean Corpuscular Hemoglobin 30.2 pg (26-34); Mean Corpuscular Volume 93.2 fl (80-100); Mean Platelet Volume 11.4 fl (7.4-10.4); Monocytes Absolute Auto 0.7 K/mm3 (0.1-0.6); Monocytes Percent Auto 6.9 % (2.6-8.5); Neutrophils Absolute Auto 6.6 K/mm3 (1.3-6.7); Neutrophils Percent Auto 68.2 % (45.5-73.1); Platelet Count Result 210 k/mm3 (150-375); Red Blood Count 3.54 M/mm3 (4.2-5.4); Red Cell Distribution Width 13.5 % (11.5-14.5); White Blood Count 9.6 K/mm3 (4.5-10.0)
[2022-12-21 07:50] VITALS: BP 109/68; PULSE 70; RESP 16; TEMP 36.3; O2SAT 100
[2022-12-21 08:11] LABS: Rapid Plasma Reagin Non-Reactive (NonReactive)
[2022-12-21] MEDS: NALBUPHINE HCL INJ 10 MG/ML AMPUL 3 MG IV PUSH (08:43)
[2022-12-21] MEDS: DOCUSATE SODIUM 100 MG CAPSULE PO ×2 (08:43→17:52)
[2022-12-21] MEDS: IBUPROFEN 600 MG TABLET PO ×3 (09:49→22:26)
[2022-12-21 12:13] VITALS: BP 110/57; PULSE 77; RESP 16; TEMP 36.9; O2SAT 100
[2022-12-21 19:00] VITALS: BP 124/77; PULSE 84; RESP 16; TEMP 36.3; O2SAT 100
--- NOTE | 2022-12-21 20:10 | P.PNOB_ITS ---
OB - PN: Subj Subjective Date/time seen: 12/21/22 20:10 Interval history: She had adequate pain control, she has flatus, no leg pain, she tolerated foods this morning. OB - PN: Obj Data Labs 12/21/22 04:53 Labs: Laboratory Results - last 24 hr 12/20/22 12/21/22 11:22 04:53 WBC 9.6 RBC 3.54 L Hgb 10.7 L Hct 33.0 L MCV 93.2 MCH 30.2 MCHC 32.4 RDW 13.5 Plt Count 210 MPV 11.4 H Immature Gran % (Auto) 0.3 Neut % (Auto) 68.2 Lymph % (Auto) 23.9 Victoria % (Auto) 6.9 Eos % (Auto) 0.5 Baso % (Auto) 0.2 Lymph # (Auto) 2.29 Victoria # (Auto) 0.7 H Eos # (Auto) 0.1 Baso # (Auto) 0.0 Abs Immat Gran (auto) 0.03 Absolute Neuts (auto) 6.6 Absolute Nucleated RBC 0.0 Nucleated RBC % 0.0 RPR Non-reactive OB - PN A/P Assessment and Plan (1) Delivery by section: Status: Acute Assessment and Plan: POD1 s/p primary section. Doing well. Routine post care. Time Spent With Patient Time: Total time spent is greater than 50% in coordination of care (as documented) at patient's floor/unit and/or counseling patient: Exam Const: General: comfortable and no acute distress Resp: Effort & Inspection: normal respiratory effort Auscultation: clear to auscultation bilaterally Cardio: Rate: regular rate Rhythm: regular rhythm GI: Other: +BS soft incision healing well fundus -1 umb firm nontender Extrem: General: normal to inspection, no pedal edema and no calf tenderness Psych: Mental Status: mental status grossly normal Affect: normal affect
[2022-12-22] MEDS: IBUPROFEN 600 MG TABLET PO ×2 (04:51→13:53)
[2022-12-22 08:00] VITALS: BP 109/73; PULSE 72; RESP 16; TEMP 36.5; O2SAT 100
[2022-12-22] MEDS: DOCUSATE SODIUM 100 MG CAPSULE PO (08:04)
[2022-12-22] MEDS: HYDROcodone/acetaminophen (*CRX) 5-325 MG TABLET 1 TAB PO ×2 (08:04→13:53)
--- NOTE | 2022-12-22 13:33 | PM.OBDSVD ---
DS: Admitting Diagnosis Discharge Date 12/22/2022 Admitting Diagnosis 1.Persistent breech presentation 2. Elective primary section DS: Discharge Diagnosis Discharge Diagnosis (1) Breech presentation: Code(s): O32.1XX0 - Maternal care for breech presentation, not applicable or unspecified Status: Acute (2) Delivery by section: Status: Acute OB - DS: Summary Hospital Course Hospital Course: Patient was admitted on 12/20/2022 for planned primary due to persistent breech presentation. This is a surrogate gestation. An uncomplicated primary section. She did well postoperatively. Nausea was improved and mostly resolved by post op day 1. She was tolerating regular food ambulating without any problems and had adequate pain control on postop day 2. And she requested discharge to home. She did have flatus on post up day 1. OB Procedures : Ultrasound OB Procedures Intrapartum: OB Procedures: : None Peripartum Data Procedures: Procedures Operation Date: 12/20/22 12:00 Actual Procedure Side Surgeon p Primary Section Bilateral Pravin Snider MD complications: none Status at Discharge Functional status at discharge: independent ambulation Time Spent with Patient Time attestation: Total time spent providing and/or coordinating discharge services: Exam Const: General: cooperative Orientation/consciousness: oriented to person, oriented to place and oriented to time HENMT: Face/Nose/Sinus: Normal external nose present Eyes: General: appearance normal, both eyes and all related structures Resp: Effort & Inspection: normal respiratory effort GI: Inspection: normal to inspection Other: Incision healing well. Skin: General skin exam: normal color Neuro: General: oriented to person, oriented to place and oriented to time Extrem: General: normal to inspection and no calf tenderness Psych: Appearance: grossly normal Mental Status: mental status grossly normal Discharge Plan Discharge Attending physician on discharge: Pravin Snider Consulting providers: Andrew Li Discharging Clinician: Pravin Snider Anticipated Discharge Date/Time: 12/22/22 13:30 Patient Disposition: Home, Self-Care Activity: may shower, may drive after 2 weeks, follow weight bearing status and pelvic rest Diet: regular Patient Instructions: Antibiotic Form, (DC) Stand Alone Forms: General Discharge Information Follow-up/Referrals: Pravin Snider MD [Physician] - 2 Weeks (Call for appointment) Discharge Medications: New hydrocodone-acetaminophen 5-325 mg Tablet 1 tablet PO Q3H PRN (Reason: Moderate Pain (4-6)) Qty: 20 0RF Discontinued 28-800 mg-mcg Tablet 1 tablet PO DAILY ondansetron 4 mg tablet,disintegrating 4 mg PO Q6H PRN (Reason: nausea and vomiting) Qty: 30 0RF Date of admission: 12/20/22 10:30 Primary Care Provider: PHYSICIAN,TREATMENT COORDINATOR Admitting Provider: Pravin Snider Attending physician on admission: Pravin Snider Condition: Stable
[2022-12-23 10:59] VITALS: BP 121/65; PULSE 101; RESP 18; TEMP 36.9; O2SAT 99
== END 2022-12-22 14:57 | disposition home or self-care (01) | DRG 540 ==
LOC: ANHLDR 10:35 → ANHOB2 15:59
PROVIDERS: Admitting Provider Obstetrics & Gynecology; Visit Provider Obstetrics & Gynecology
PROC: 10D00Z1 Extraction of Products of Conception, Low, Open Approach (ICD-10-PCS; CPT 59514; principal; 2022-12-20 12:00)
DX: O32.1XX0 Maternal care for breech presentation, not applicable or unspecified (principal); Z37.0 Single live birth; Z3A.39 39 weeks gestation of pregnancy
CPT/HCPCS: 36415; 85025; 86592; 86850; 86900; 86901; A9270; J0690; J1885; J2274; J2300; J2405; J2590; J2765; J3480; J7120